=== PATIENT | male | born 1960 | race Caucasian/White ===

== ENCOUNTER 2019-10-04 17:33 | Emergency (ER) | payer OTHER ==
[2019-10-04 18:12] LABS: #Eosinphils 0.5 thou/uL (0.0-0.7); #Lymphocytes 2.1 thou/uL (1.20-3.40); #Monocytes 0.8 thou/uL (0.11-0.59); %Basophils 0.4 % (0.0-1.0); %Lymphocytes 18.3 % (21.0-51.0); %Monocytes 6.6 % (0.0-10.0); %Neutrophils 70.7 % (42.0-75.0); Hemoglobin 14.6 g/dL (14.0-18.0); Mean Corpuscular HGB CONC 32.4 g/dL (32.0-36.0); Mean Corpuscular Volume 92.6 fL (78.0-98.0); Platelet Count 182 thou/uL (130-400); RBC Distribution Width 12.8 % (11.5-14.5); Red Blood Cell (RBC) Count 4.89 mill/uL (4.70-6.10); White Blood Cell (WBC) Count 11.3 thou/uL (4.8-10.8)
[2019-10-04] MEDS ORDERED: Aspirin 325 MG TAB ONE (18:17)
[2019-10-04 18:20] LABS: PTT 28.4 sec (22.9-36.1); Prothrombin Time 13.6 sec (12.0-14.7)
[2019-10-04] MEDS ORDERED: Aspirin Chewable 81 MG TAB ONE (18:20)
[2019-10-04 18:36] LABS: ALT (SGPT) 33 U/L (8-55); AST (SGOT) 22 U/L (5-34); Alkaline Phosphatase 97 U/L (40-110); Anion Gap 18 mmol/L (10-20); BUN (Urea Nitrogen) 25 mg/dL (8.4-25.7); Bilirubin, Total 1.2 mg/dL (0.2-1.2); Calc. Creatinine Clearance 0 mL/min (70-130); Calcium 9.8 mg/dL (7.8-10.44); Carbon Dioxide 22 mmol/L (23-31); Chloride 103 mmol/L (98-107); Estimated GFR-MDRD 46; Glucose 176 mg/dL (80-115); Lipase 66 U/L (8-78); Potassium 3.8 mmol/L (3.5-5.1); Sodium 139 mmol/L (136-145)
[2019-10-04 18:54] LABS: CKMB 2.1 ng/mL (0-6.6)
--- NOTE | 2019-10-04 20:02 | RAD ---
PORTABLE CHEST ONE VIEW: 10/04/19 at 6:40 p.m. HISTORY: Chest pain, shortness of breath, dizziness. COMPARISON: 07/26/18. Changes of median sternotomy are again seen. Left sided AICD remains in place. The heart size is norm al. The lungs are well expanded without lobar consolidation, pneumothoraces, or pleural effusions. Th ere are degenerative changes in the acromioclavicular joints. IMPRESSION: No acute process. POS: LIANH
[2019-10-04] MEDS ORDERED: Dextrose 5 %-0.45 % NaCl 1,000 ML IV SCH (22:00)
[2019-10-04] MEDS ORDERED: Nitroglycerin 2% Ointment 1 INCH/1 GM Packet TOP SCH (22:00)
[2019-10-04] MEDS ORDERED: Acetaminophen 500 MG TAB PO PRN (22:00)
[2019-10-04] MEDS ORDERED: Dextrose 50% Abboject 50 ML SYRINGE SLOW IVP PRN (22:06)
[2019-10-04] MEDS ORDERED: Dextrose 5% in Water 1,000 ML IV PRN (22:06)
[2019-10-04] MEDS ORDERED: HumaLOG 300 UNITS/3 ML VIAL SC PRN (22:06)
--- NOTE | 2019-10-04 23:03 | HP ---
PRIMARY CARE PHYSICIAN: Dr. Sheridan Bullock. CHIEF COMPLAINT: Chest pain. HISTORY OF PRESENT ILLNESS: The patient is a very pleasant 59-year-old male with past medical history significant for diabetes type 2, hyperlipidemia, stroke with residual right-sided deficit, and hypertension. He presents to the ER today for chest pain that occurred while at home. The patient visited his heart doctor earlier today, Dr. Cody and was feeling fine during that time. Once he got home, he walked out to his car to carry a watermelon inside and he thinks walking in the heat started the pain. He began to feel short of breath and had a midsternal chest pressure that did not radiate anywhere. He was diaphoretic and nauseous throughout the pain. He did make it inside to sit in his chair where he remained for an hour because he was too weak to get up and get his cell phone. The pain eventually resolved on its own and he was able to call EMS. The ER notes do state that upon EMS arrival, he was found to have a wide-complex tachycardia with a heart rate in the 160s. When paramedics transferred him to the [facility], the tachycardia and chest pain did resolve per their report. Today in the ER, lab work was completed including a CBC, basic metabolic panel, troponin, chest x-ray, and EKG. PAST MEDICAL HISTORY: Diabetes mellitus type 2, hyperlipidemia, stroke, hypertension. PAST SURGICAL HISTORY: Hernia repair, CABG x4 in 2017, AICD. ALLERGIES: NO KNOWN DRUG ALLERGIES. MEDICATIONS: To be reconciled once to the floor- patient unable to recall medications. SOCIAL HISTORY: The patient lives at home alone. He is disabled. He uses a cane to ambulate long distances. He is not a smoker or uses any illicit drugs. He does drink a glass of wine per week. FAMILY HISTORY: Positive for extensive cardiac disease, diabetes, and cancer. REVIEW OF SYSTEMS: The patient does claim orthopnea. All other review of systems is negative unless noted in the HPI. PHYSICAL EXAMINATION: VITAL SIGNS: Blood pressure 117/84, pulse 71, respiratory rate 20, O2 saturation 98% on room air. Pain level is zero. Temperature 98.6. GENERAL: The patient appears nontoxic, appears older than his stated age. HEENT: Head, atraumatic, normocephalic. Eyes, PERRLA. Extraocular muscles are intact. NECK: Supple. Trachea midline. No JVD. No lymphadenopathy. RESPIRATORY: Clear to auscultation bilaterally. No wheezes, no rhonchi, no rales. CARDIOVASCULAR: Heart rate, regular rate and rhythm. No rubs, no gallops, no murmurs. ABDOMEN: Nontender. Normal bowel sounds. No distention. LOWER EXTREMITIES: 1+ pedal edema to right foot. No cyanosis. No clubbing. NEURO: The patient oriented to person, place, and time. PSYCH: Normal affect. Normal behavior. LABORATORY DATA: Troponin 0.037, CK-MB 2.1. BNP 26.8. Sodium 139, potassium 3.8, BUN 25, creatinine 1.54, GFR 46, glucose 176. WBC 11.3, hemoglobin 14.6, hematocrit 45.3. EKG showed normal sinus rhythm with PACs, 78 beats per minute. Chest x- ray showed no acute cardiopulmonary process. IMPRESSION AND PLAN: 1. Chest pain, acute, stable. We will consult the patient's tan room supervisor in the morning. He was planning to have a cardiac stress test and echo next week scheduled with his tan room supervisor. We will go ahead and order an echo and defer to Cardiology regarding the possible stress test. Continue to trend troponins. We will interrogate his AICD. The patient claims that he feels it is not functioning properly because it "did nothing" during his event earlier today. 2. Diabetes. We will continue the patient on home medications and start sliding scale insulin for him, also monitor Accu-Cheks. 3. Hypertension. We will reconcile home medications. The patient's blood pressure is stable at this time. 4. JANETH. Gentle rehydration due to unknown heart function. 5. Gastrointestinal and deep venous thrombosis prophylaxis ordered. 6. The patient wishes to be a full code. 7. The patient refused to list the surrogate decision maker for himself. Job ID: [id number] [facility]
== END 2019-10-04 22:22 | disposition left against medical advice (07) ==
LOC: ERS 17:33
DX: I47.2 Ventricular tachycardia (principal); R55 Syncope and collapse; E11.9 Type 2 diabetes mellitus without complications; E78.5 Hyperlipidemia, unspecified; I10 Essential (primary) hypertension
CPT/HCPCS: 36415; 71045; 80053; 82553; 83690; 83880; 84484; 85025; 85610; 85730; 93005

== ENCOUNTER 2020-02-09 14:03 | Outpatient (CLI) | payer OTHER ==
[2020-02-09 16:30] LABS: Hemoglobin 13.7 g/dL (14.0-18.0); Mean Corpuscular HGB CONC 32.5 g/dL (32.0-36.0); Mean Corpuscular Hemoglobin 29.9 pg (27.0-31.0); Mean Corpuscular Volume 92.1 fL (78.0-98.0); Mean Platelet Volume 10.4 fL (7.4-10.4); Platelet Count 205 thou/uL (130-400); RBC Distribution Width 13.4 % (11.5-14.5); Red Blood Cell (RBC) Count 4.58 mill/uL (4.70-6.10); White Blood Cell (WBC) Count 11.6 thou/uL (4.8-10.8)
[2020-02-09 16:41] LABS: INR-International Normal Ratio 1.1; PTT 34.2 sec (22.9-36.1); Prothrombin Time 14.7 sec (12.0-14.7)
[2020-02-09 16:54] LABS: Bilirubin Negative (Negative); Blood, Urine Small (Negative); Glucose, Urine (Dipstick) 250 mg/dL (Negative); Ketone, Urine Trace mg/dL (Negative); Leukocyte Small (Negative); Nitrite Negative (Negative); Protein, Urine (Dipstick) 30 mg/dL (Neg-Trace); Urobilinogen 0.2 mg/dL (Less than 2); pH, Urine 5.5 (5.0-9.0)
[2020-02-09 16:56] LABS: Clarity Cloudy (Clear); Specific Gravity, Urine 1.028 (1.002-1.036)
[2020-02-09 17:09] LABS: Bacteria/HPF Rare-Few HPF (None Seen); Renal Epithelial 0-3 HPF (None Seen); Squamous Epithelial None Seen HPF (0-3); Transitional Epithelial 0-3 HPF (None Seen); WBC/HPF Greater Than 50 HPF (0-3)
[2020-02-09 17:46] LABS: Anion Gap 18 mmol/L (10-20); BUN (Urea Nitrogen) 21 mg/dL (8.4-25.7); Calc. Creatinine Clearance 0 mL/min (70-130); Carbon Dioxide 18 mmol/L (23-31); Chloride 107 mmol/L (98-107); Estimated GFR-MDRD 59; Glucose 224 mg/dL (80-115); Potassium 4.4 mmol/L (3.5-5.1); Sodium 139 mmol/L (136-145)
[2020-02-10 12:31] LABS: SARS-CoV-2 MS2 Positive; SARS-CoV-2 N Gene Negative; SARS-CoV-2 S Gene Negative; SARS-CoV-2 by NAA Not Detected (NotDetected); SARS-CoV-2 orf1ab Negative
--- NOTE | 2020-02-17 13:15 | EKG ---
Test Reason : Blood Pressure : / mmHG Vent. Rate : 070 BPM Atrial Rate : 070 BPM P-R Int : 144 ms QRS Dur : 090 ms QT Int : 464 ms P-R-T Axes : 064 038 096 degrees QTc Int : 501 ms Sinus rhythm with Premature supraventricular complexes Low voltage QRS Cannot rule out Anterior infarct , age undetermined T wave abnormality, consider lateral ischemia Prolonged QT Abnormal ECG No previous ECGs available Confirmed by DR. Soniya ALVARES ([id number]) on 02/17/2020 1:15:22 PM Referred By: DR TEMPLE Confirmed By:DR. Soniya ALVARES
== END 2020-02-09 14:04 | disposition home or self-care (01) ==
LOC: LABBT 14:03
PROVIDERS: ATTEND Urology
DX: Z01.818 Encounter for other preprocedural examination (principal); Z20.828 Contact with and (suspected) exposure to other viral communicable diseases; N40.0 Benign prostatic hyperplasia without lower urinary tract symptoms
CPT/HCPCS: 80048; 81001; 85027; 85610; 85730; 87077; 87086; 87186; 87635; 93005; 93010; U0003

== ENCOUNTER 2020-03-01 06:33 | Outpatient (CLI) | payer OTHER ==
[2020-03-01 15:08] LABS: Hemoglobin 14.6 g/dL (14.0-18.0); Mean Corpuscular HGB CONC 30.9 G/DL (32.0-36.0); Mean Corpuscular Hemoglobin 28.7 PG (27.0-33.0); Mean Corpuscular Volume 93.1 fl (80.0-100.0); Mean Platelet Volume 12.3 fl (7.4-10.4); Platelet Count 189 10x3/uL (130-400); RBC Distribution Width 14.1 % (11.5-14.5); Red Blood Cell (RBC) Count 5.08 10x6/uL (4.40-5.80)
[2020-03-01 15:12] LABS: Bilirubin Neg (Negative); Blood, Urine Negative (Negative); Clarity Clear (Clear); Glucose, Urine (Dipstick) 250 mg/dL (Negative); Ketone, Urine Negative (Negative); Leukocyte 100 (Negative); Nitrite Negative (Negative); Protein, Urine (Dipstick) 15 mg/dl (Neg-Trace); Specific Gravity, Urine 1.025 (1.002-1.036); Urobilinogen Normal mg/dL (Less than 2)
[2020-03-01 15:26] LABS: Anion Gap 17 mmol/L (10-20); BUN (Urea Nitrogen) 17 mg/dL (8.4-25.7); Calc. Creatinine Clearance 0 mL/min (70-130); Calcium 9.2 mg/dL (7.8-10.44); Carbon Dioxide 22 mmol/L (23-31); Chloride 105 mmol/L (98-107); Estimated GFR-MDRD 62; Glucose 191 mg/dL (80-115); PTT 29.4 sec (22.0-33.0); Potassium 4.3 mmol/L (3.5-5.1); Prothrombin Time 10.8 sec (9.5-12.1); Sodium 140 mmol/L (136-145)
[2020-03-01 15:45] LABS: Bacteria/HPF Rare-Few HPF (None Seen); RBC/HPF 0-3 HPF (0-3); Squamous Epithelial 0-3 HPF (0-3)
[2020-03-01 15:46] LABS: Calcium Oxalate Crystals 2+ HPF (None Seen)
[2020-03-02 15:01] LABS: SARS-CoV-2 MS2 Positive; SARS-CoV-2 N Gene Negative; SARS-CoV-2 S Gene Negative; SARS-CoV-2 by NAA Not Detected (NotDetected); SARS-CoV-2 orf1ab Negative
== END 2020-03-01 06:34 | disposition home or self-care (01) ==
LOC: LABBT 06:33
PROVIDERS: ATTEND Urology
DX: Z01.812 Encounter for preprocedural laboratory examination (principal); Z20.828 Contact with and (suspected) exposure to other viral communicable diseases; N40.0 Benign prostatic hyperplasia without lower urinary tract symptoms
CPT/HCPCS: 80048; 81001; 85027; 85610; 85730; 87086; 87635; U0003

== ENCOUNTER 2020-03-23 15:34 | Inpatient (IN) | payer OTHER ==
--- NOTE | 2020-03-23 16:34 | CT ---
CT BRAIN 03/23/20 PROVIDED CLINICAL HISTORY: Dizziness. COMPARISON: 09/07/16. FINDINGS: The ventricular system appears normal in size and morphology. There is no evidence for intracranial h emorrhage or mass effect. The extracranial soft tissues and osseous structures appear unremarkable. V ascular calcifications are seen. IMPRESSION: No evidence for intracranial hemorrhage or mass effect. POS: SUMEET
[2020-03-23] MEDS ORDERED: Magnesium 2 GM/50 ML BAG (IN WATER) ONE (16:57)
[2020-03-23 17:00] LABS: #Eosinphils 0.2 thou/uL (0.0-0.7); #Lymphocytes 2.4 thou/uL (1.20-3.40); #Monocytes 0.9 thou/uL (0.11-0.59); #Neutrophils 7.9 thou/uL (1.40-6.50); %Basophils 0.1 % (0.0-1.0); %Eosinophils 1.6 % (0.0-10.0); %Monocytes 7.8 % (0.0-10.0); %Neutrophils 69.5 % (42.0-75.0); Hemoglobin 13.8 g/dL (14.0-18.0); Mean Corpuscular Hemoglobin 29.2 pg (27.0-31.0); Mean Corpuscular Volume 91.4 fL (78.0-98.0); Mean Platelet Volume 10.1 fL (7.4-10.4); Platelet Count 192 thou/uL (130-400); RBC Distribution Width 13.9 % (11.5-14.5); Red Blood Cell (RBC) Count 4.73 mill/uL (4.70-6.10); White Blood Cell (WBC) Count 11.3 thou/uL (4.8-10.8)
[2020-03-23 17:06] LABS: INR-International Normal Ratio 1.2; Prothrombin Time 15.3 sec (12.0-14.7)
--- NOTE | 2020-03-23 17:08 | RAD ---
PORTABLE CHEST: 03/23/20 PROVIDED CLINICAL HISTORY: Dizziness, headache, hypertension. FINDINGS: Comparison 03/15/20. Cardiac silhouette appears enlarged, which may be at least partially on the basis of portable techniq ue. Median sternotomy changes and left subclavian cardiac pacing device are redemonstrated. No focal consolidation, pleural fluid or pneumothorax apparent. IMPRESSION: No evidence for an acute cardiopulmonary process. POS: SUMEET
[2020-03-23 17:18] LABS: ALT (SGPT) 17 U/L (8-55); AST (SGOT) 11 U/L (5-34); Albumin 3.8 g/dL (3.4-4.8); Alkaline Phosphatase 94 U/L (40-110); Anion Gap 17 mmol/L (10-20); BUN (Urea Nitrogen) 16 mg/dL (8.4-25.7); Bilirubin, Total 1.4 mg/dL (0.2-1.2); Calc. Creatinine Clearance 0 mL/min (70-130); Calcium 9.2 mg/dL (7.8-10.44); Carbon Dioxide 26 mmol/L (23-31); Chloride 103 mmol/L (98-107); Estimated GFR-MDRD 55; Globulin 2.5 g/dL (2.4-3.5); Glucose 122 mg/dL (80-115); Potassium 4.2 mmol/L (3.5-5.1); Protein, Total 6.3 g/dL (5.8-8.1); Sodium 142 mmol/L (136-145)
[2020-03-23] MEDS ORDERED: Acetaminophen 500 MG TAB ONE (17:20)
--- NOTE | 2020-03-23 18:19 | PDOC.HHP ---
Hospitalist HPI - History of Present Illness Elevated blood pressure reading History of Present Illness: PCP: Dr. Bullock The patient is a 59-year-old male with a past medical history significant for CAD, CABG x4 (2017), AICD (2017), CVA with right-sided paresthesias (2011) that presents to the emergency department via EMS for the above complaint. The patient was recently discharged from our hospital on 03/16/2020. Apparently, his defibrillator had fired multiple times. He was discharged home on oral amiodarone and was to follow-up with his dog trainer, Dr. Cody, on 03/28/2020. He reports that since his discharge he has had intermittent, generalized headache, described as "like my head is going to explode", with associated elevated blood pressure, dizziness, blurred vision and unstable gait and heart palpitations. He reports that his blood pressure has been elevated for the past week, the highest reading was 185/118. His primary concern is that he could have a stroke. Reports that he has a history of migraine headaches, however, has not had one in several years. He has no history of DVT/PE. Denies any recent trauma or falls. Denies any fever, jaw claudication or neck stiffness. Denies any weakness to his extremities, dysphagia or slurred speech. Denies chest pain, however, he does have chronic swelling to his lower extremities that "my doctors have not been able to figure out". Denies any abdominal pain, nausea, vomiting, diarrhea. He does report some constipation, however, it last 2 to 3 days and then he has a formed BM. He reports dysuria, denies any hematuria. He is scheduled to have prostate surgery next month for his BPH. He called EMS and upon arrival, the patient was noted to have a blood pressure reading of 180/96, heart rate 55 with normal respirations and SPO2 saturation. The patient was taken to the hospital for further evaluation. ED Course: VITAL SIGNS ThuMar 23, 2020 15:36 ALEX Owens Kimberly BP: 113/96, Pulse: 57, Resp: 20, Temp: 98.8 (Oral), Pain: 4, O2 sat: 98 on (Room Air), Time: 03/23/2020 15:36. VITAL SIGNS ThuMar 23, 2020 15:56 ALEX Owens Kimberly Pulse: 47, Resp: 15, Pain: 4, Time: 03/23/2020 15:56. VITAL SIGNS ThuMar 23, 2020 16:15 ALEX Owens Kimberly BP: 167/79, Time: 03/23/2020 16:15. VITAL SIGNS ThuMar 23, 2020 16:56 ALEX Brooks Jeffery BP: 184/113, MAP: 136, Pulse: 66, Resp: 28, O2 sat: 97 on (Room Air), Time: 03/23/2020 16:56. VITAL SIGNS ThuMar 23, 2020 17:40 ALEX Owens Kimberly BP: 166/92, Pulse: 47, Resp: 23, Pain: 4, O2 sat: 97 on (Room Air), Time: 03/23/2020 17:40. Medication administration: magnesium sulfate in water 2 g IV Piggy Back Given 17:11 03/23/2020 Hospitalist ROS - Review of Systems All other systems reviewed; all pertinent +/- noted in HPI/Subj - Medication Medications: Medication Instructions Recorded Confirmed Type Apixaban [Eliquis] 5 mg PO BID 02/13/20 03/15/20 History Aspirin [Ecotrin Low Strength] 81 mg PO DAILY 02/13/20 03/15/20 History Atorvastatin Calcium 1 tab PO HS 02/13/20 03/15/20 History Carvedilol 1 tab PO BID 02/13/20 03/15/20 History Clopidogrel Bisulfate [Plavix] 75 mg PO HS 02/13/20 03/15/20 History Furosemide 1 tab PO BID 02/13/20 03/15/20 History Isosorbide Mononitrate [Isosorbide 1 tab PO DAILY 02/13/20 03/15/20 History Mononitrate ER] Levofloxacin 500 mg PO HS 02/13/20 03/15/20 History Lisinopril 1 tab PO HS 02/13/20 03/15/20 History Oxybutynin [Ditropan] 1 tab PO BID 02/13/20 03/15/20 History metFORMIN [Glucophage] 1,000 mg PO QAM- 02/13/20 03/15/20 History Amiodarone [Cordarone] 400 mg PO BID #30 tab 03/16/20 Rx Allergies No Known Allergies Allergy (Verified 03/05/20 11:18) Hospitalist History - Past Medical History Source: patient, RN notes reviewed Cardiac: reports: CAD, HTN, Hyperlipidemia, Other (Arrhythmia) 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 Endocrine: reports: Diabetes (Type II, [id number]) - Past Surgical History Past Surgical History: reports: CABG (X4 (2017)), Hernia Repair, Other (AICD (2017)) - Family History Family History: reports: cardiac disorder, cerebrovascular accident - Social History Smoking Status: Never smoker Alcohol: reports: None Drugs: reports: none Living Situation: Alone Activity level: independent ambulation - Exam General Appearance: NAD, awake alert. negative: ill appearing Eye: PERRL, anicteric sclera ENT: normocephalic atraumatic Neck: supple, symmetric, no JVD Heart: RRR, no murmur, no gallops, no rubs, normal peripheral pulses Respiratory: CTAB, no wheezes, no rales, no ronchi, normal chest expansion, no tachypnea Gastrointestinal: soft, non-tender, non-distended, normal bowel sounds, no bruit, no guarding, no rigidity Extremities: no cyanosis, 1+ LE edema Skin: no rashes Neurological: cranial nerve grossly intact, no new deficit (Right lower extremity drift, baseline from previous stroke). negative: speech deficit, vision deficit Psychiatric: normal affect, A&O x 3 Hospitalist Results - Labs Result Diagrams: 03/23/20 16:47 03/23/20 16:47 Lab results: WBC 11.3 thou/uL (4.8-10.8) H 03/23/20 16:47 Hgb 13.8 g/dL (14.0-18.0) L 03/23/20 16:47 Hct 43.2 % (42.0-52.0) 03/23/20 16:47 MCV 91.4 fL (78.0-98.0) 03/23/20 16:47 Plt Count 192 thou/uL (130-400) 03/23/20 16:47 Neutrophils % 69.5 % (42.0-75.0) 03/23/20 16:47 Sodium 142 mmol/L (136-145) 03/23/20 16:47 Potassium 4.2 mmol/L (3.5-5.1) 03/23/20 16:47 Chloride 103 mmol/L (98-107) 03/23/20 16:47 Carbon Dioxide 26 mmol/L (23-31) 03/23/20 16:47 BUN 16 mg/dL (8.4-25.7) 03/23/20 16:47 Creatinine 1.33 mg/dL (0.7-1.3) H 03/23/20 16:47 Glucose 122 mg/dL (80-115) H 03/23/20 16:47 Calcium 9.2 mg/dL (7.8-10.44) 03/23/20 16:47 Total Bilirubin 1.4 mg/dL (0.2-1.2) H 03/23/20 16:47 AST 11 U/L (5-34) 03/23/20 16:47 ALT 17 U/L (8-55) 03/23/20 16:47 Alkaline Phosphatase 94 U/L (40-110) 03/23/20 16:47 Troponin I 0.011 ng/mL (< 0.028) 03/23/20 16:47 Serum Total Protein 6.3 g/dL (5.8-8.1) 03/23/20 16:47 Albumin 3.8 g/dL (3.4-4.8) 03/23/20 16:47 - EKG Interpretation EK lead EKG shows, sinus bradycardia, Rate (beats per minute): 50, with no ectopics, Conduction normal, ST segments normal, T waves normal, [place], left, Clinical impression:, other dysrhythmia sinus bradycardia, QT 579, no stemi. - Radiology Interpretation Chest x-ray Status: report reviewed by me Additional Comment: IMPRESSION: No evidence for an acute cardiopulmonary process. CT scan - head Status: report reviewed by me Additional Comment: IMPRESSION: No evidence for intracranial hemorrhage or mass effect. Hospitalist H&P A/P - Problem (1) Dizziness Code(s): R42 - DIZZINESS AND GIDDINESS Status: Acute (2) Bradycardia Code(s): R00.1 - BRADYCARDIA, UNSPECIFIED Status: Acute (3) HTN (hypertension) Code(s): I10 - ESSENTIAL (PRIMARY) HYPERTENSION Status: Chronic (4) CAD (coronary artery disease) Code(s): I25.10 - ATHSCL HEART DISEASE OF [place] CORONARY ARTERY W/O ANG PCTRS Status: Chronic (5) HLD (hyperlipidemia) Code(s): E78.5 - HYPERLIPIDEMIA, UNSPECIFIED Status: Chronic (6) DM2 (diabetes mellitus, type 2) Status: Chronic (7) CVA (cerebral vascular accident) Code(s): I63.9 - CEREBRAL INFARCTION, UNSPECIFIED Status: Chronic (8) BPH (benign prostatic hyperplasia) Code(s): N40.0 - BENIGN PROSTATIC HYPERPLASIA WITHOUT LOWER URINRY TRACT SYMP Status: Chronic - Plan Plan: 59/M with PMH CAD w/ AICD, and CVA presents for dizziness. Admit to stroke unit, observation status. Expected length of stay less than 2 midnights. Presented hypertensive, bradycardic, NL RR, SPO2, afebrile. EKG sinus bradycardia, prolonged QT, no ST elevations CXR no acute process CT brain no acute process Troponin 0.011, BNP 135 [employer] interrogated AICD, 4 beats nonsustained V. tach on 03/17. No other abnormalities recorded. #Dizziness Patient reports H/A, ataxia for the past week. Was started on oral amiodarone, which can cause symptoms. EKG prolong QT interval in ED. We will hold amiodarone for now. Consult cardiology. Rule out posterior CVA. Order MRI, CD US. Recent echo 03/15/2020. Consult stroke team, and neurology. Patient anticoagulated on Eliquis, ASA, Plavix. Continue home dose atorvastatin. AICD interrogated by [employer] in ED. #Bradycardia During assessment in ED, HR 30s to 50s. Patient asymptomatic. We will hold Coreg and amiodarone for now. We will start Procardia XL for BP control. We will consult cardiology. Continue cardiac monitoring. Trend troponins, check TSH and mag level. Recent echo 03/15/20. #HTN Presented hypertensive. Due to bradycardia we will hold home dose of Coreg. We will start Procardia XL for BP control. We will restart home dose lisinopril, Lasix and Imdur. #CAD Continue home dose ASA, Plavix, Eliquis. Continue home dose Lasix, Imdur, lisinopril. Hold home dose BB due to bradycardia. #HLD Restart home dose atorvastatin Check FLP. #DM2 Hold home dose Metformin. Mild ISS. AC/at bedtime checks. #CVA Baseline right-sided paresthesias. Continue home dose ASA, Plavix, Eliquis. #BPH Reports scheduled for prostatectomy next month. Postponed secondary to recent hospitalization for cardiac issues. Reports dysuria. We will check UA. No SCDs for DVT prophylaxis. No pharmacological DVT prophylaxis. Full code. Discussed the case with Dr. David Cruz.
[2020-03-23] MEDS ORDERED: HumaLOG 300 UNITS/3 ML VIAL SC PRN (19:34)
[2020-03-23] MEDS ORDERED: Dextrose 5% in Water 1,000 ML IV PRN (19:34)
[2020-03-23] MEDS ORDERED: Dextrose 50% Abboject 50 ML SYRINGE SLOW IVP PRN (19:34)
[2020-03-23] MEDS ORDERED: hydrALAZINE 20 MG/ML VIAL SLOW IVP PRN (19:35)
[2020-03-23] MEDS ORDERED: NIFEdipine XL 30 MG TAB PO SCH (19:45)
[2020-03-23 20:41] LABS: Troponin I Less than 0.010 ng/mL (< 0.028)
[2020-03-23] MEDS ORDERED: Acetaminophen 500 MG TAB PO PRN (20:56)
[2020-03-23] MEDS ORDERED: Lisinopril 10 MG TAB PO SCH (21:00)
[2020-03-23] MEDS: Apixaban 5 MG TAB PO SCH (22:30)
[2020-03-23] MEDS: Oxybutynin 5 MG TAB PO SCH (22:30)
[2020-03-23] MEDS: Atorvastatin Calcium 40 MG TAB PO SCH (22:30)
[2020-03-23] MEDS: Clopidogrel Bisulfate 75 MG TAB PO SCH (22:30)
[2020-03-24 00:23] LABS: Troponin I 0.028 ng/mL (< 0.028)
[2020-03-24 03:11] LABS: SARS-CoV-2 MS2 Positive; SARS-CoV-2 N Gene Negative; SARS-CoV-2 S Gene Negative; SARS-CoV-2 by NAA Not Detected (NotDetected); SARS-CoV-2 orf1ab Negative
[2020-03-24 05:38] LABS: Cardiac Risk 4.2 (Less than 4.5)
[2020-03-24] MEDS: Furosemide 40 MG TAB PO SCH ×2 (06:22→14:22)
[2020-03-24 07:05] LABS: Bacteria/HPF None Seen HPF (None Seen); Bilirubin Negative (Negative); Blood, Urine Negative (Negative); Clarity Clear (Clear); Glucose, Urine (Dipstick) 100 mg/dL (Negative); Ketone, Urine Negative (Negative); Leukocyte 250 Leu/uL (Negative); Nitrite Negative (Negative); Protein, Urine (Dipstick) Negative (Neg-Trace); RBC/HPF 0-3 HPF (0-3); Specific Gravity, Urine 1.019 (1.002-1.036); Squamous Epithelial 0-3 HPF (0-3); Urobilinogen Normal mg/dL (Less than 2)
[2020-03-24] MEDS ORDERED: Ibuprofen 200 MG TAB PO SCH (07:45)
[2020-03-24] MEDS: Aspirin 81 mg Enteric Coated Tablet PO SCH (08:28)
[2020-03-24] MEDS: Oxybutynin 5 MG TAB PO SCH ×2 (08:28→20:16)
[2020-03-24] MEDS: Apixaban 5 MG TAB PO SCH ×2 (08:28→20:16)
--- NOTE | 2020-03-24 09:12 | ULT ---
Carotid arterial Doppler ultrasound: 03/24/2020 COMPARISON: None. HISTORY: Dizziness with headache and hypertension, vertigo. TECHNIQUE: Multiplanar grayscale sonographic imaging of the arterial structures of the neck obtained with Doppler interrogation including color flow and spectral analysis. FINDINGS: Antegrade blood flow with normal arterial waveforms are seen within the carotid and vertebral system bilaterally. There is atherosclerotic calcification within the distal left common carotid artery. VESSEL PSV (cm/sec) Right common carotid artery 83 Right internal carotid artery 50 Right external carotid artery 84 Left common carotid artery 83 Left internal carotid artery 59 Left external carotid artery 67 The ICA/CCA ratio is 0.6 on the right and 0.7 on the left. IMPRESSION: No hemodynamically significant stenosis on the basis of sonographic velocity criteria. Transcribed Date/Time: 03/24/2020 9:37 AM
[2020-03-24] MEDS ORDERED: Lisinopril 20 MG TAB PO SCH (10:30)
--- NOTE | 2020-03-24 12:38 | CT ---
CT BRAIN WITHOUT CONTRAST: Date: 03/24/2020 HISTORY: Episode of blurred vision. COMPARISON: 03/23/2020. FINDINGS: Changes of chronic small vessel ischemic disease are again seen. The ventricular size is stable and t he basilar cisterns are patent. No evidence of acute infarct, hemorrhage, midline shift, or abnormal extra-axial fluid collections are seen. The bony calvarium is intact. The visualized paranasal sinuse s and mastoid air cells are well aerated. IMPRESSION: No CT evidence of acute intracranial process. POS: BISIA
--- NOTE | 2020-03-24 12:41 | CT ---
CT of the neck without contrast: 03/24/2020 COMPARISON: None HISTORY: Evaluate mass TECHNIQUE: Axial CT imaging at 2.5 mm intervals through the neck without contrast. Coronal and sagitt al reformatted imaging obtained. FINDINGS: The lack of contrast media limits assessment of the mucosal structures of the neck, the vas cular structures, and for lymphadenopathy. The imaged lung apices demonstrate no acute findings. Partially imaged transvenous pacing device pres ent. Midline sternotomy wires are noted. Partially imaged paranasal sinuses and mastoid air cells are well-aerated. The retroantral fat and pa rapharyngeal fat, the parotid glands, and the submandibular glands, and the tonsillar pillars are grossly unremarkable. The thyroid gland is heterogeneous with a rim calcified inferior right thyroid nodule noted measuring approximately 1.6 cm. There is a circumscribed posterior right paracentral lesion abutting the spinous process at the C6 an d C7 vertebral bodies suggesting a posterior lipoma measuring 6.3 x 4.9 x 5.3 cm. Review of the osseous structures demonstrates multifocal degenerative change within the cervical spin e with multilevel cervical spine disc space narrowing and posterior osteophyte formation as well as multilevel facet and uncovertebral osteophyte formation, most prominent on the right at the C5-6 leve l. 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 Incidental findings as detailed above.
--- NOTE | 2020-03-24 14:07 | CON ---
DATE OF CONSULTATION: 03/24/2020 INDICATION FOR CONSULTATION: A 59-year-old gentleman with known coronary artery disease, status post bypass surgery with a history of AICD implant. HISTORY OF PRESENT ILLNESS: This is a very pleasant but unfortunate 59-year-old gentleman, underwent bypass surgery with 4-vessel bypass apparently in 2017 at [facility]. He has been followed by Dr. Cody in the past. He also had suffered a CVA prior to his bypass surgery or perhaps at the time of the bypass surgery, it is unclear, at least he had a myocardial infarction at that time. His records are somewhat limited here as most of the evaluation was performed at [facility].He felt lightheaded in the past when he actually received defibrillator, which was performed sometime later in [place], but apparently on the 15 of March of this year, he was talking to someone where he lives, became very lightheaded again, sat down, and received 2 shocks and defibrillator, then presented to [facility]. I believe, he had received another shock in the interim and then he received 3 shocks from AICD at that time. He was watched overnight, was placed on amiodarone, and the next day, he was discharged home on p.o. amiodarone and his other medications. He is very concerned that he might have another shock and yesterday, he felt like he has become very lightheaded again, similar of what he had had in the past, and he presented to the emergency room again. Interrogation of device does not show any indication that he has had a subsequent or a repeat shock since the from the AICD. He denied any chest pain. He had no significant shortness of breath, but has noticed a rapid heart rate recently. He also noticed that yesterday when he was feeling somewhat lightheaded. He did have some nonsustained ventricular tachycardia or tachycardia noted on the device evaluation, but no sustained episodes and no episodes of shocks from the device. He has had no other significant problem. He did complain of some blurred vision. He says that his chest feels hot before the episodes, but he does not feel any chest pain per se. He says that he was last seen in the office by Dr. Cody just a couple of months ago. It appears on review of the records that he last was seen in the office in September by Dr. Cody. His bypass according to the records was in 2017. The defibrillator was placed in 2018. He did have an echocardiogram also in September of this year, which showed ejection fraction to be about 50% to 55%. He has mild mitral valve regurgitation, mild tricuspid valve regurgitation. He did have some evidence of left ventricular wall thickness about 1.5 cm with some asymmetric septal hypertrophy and the apex appeared to be hypokinetic, but overall ejection fraction was 50% to 55% which is within the normal range. He also had grade 1 diastolic dysfunction. He also had a stress test performed, which showed ejection fraction about 41% by nuclear evaluation with an apical scar. No evidence of reversible ischemia. At this time, he appears to be very anxious and nervous about having another possible CVA which he has suffered in the past. He presented to the emergency room. It appears that he is otherwise relatively stable, but does have significant hypertension and also was noted in the emergency room to have a heart rate in the 50s, which has also been pretty much maintained with a heart rate in the 50s, but he does have a defibrillator, the lower level is set at 50. so it appears that he is actually just sensing with the device and only occasionally pacing. Also, I did note on the evaluation that he was not pacing very frequently from the device. He has noticed recently that his blood pressure has been elevated at home and he anywhere between 150 to 180 of systolically and 80 to 100s with diastolic. PAST MEDICAL HISTORY: Significant for the CVA, coronary artery disease, bypass surgery, history of type 2 diabetes, had a CVA, has a history of ischemic cardiomyopathy. His bypass surgery was in 2017. He had a defibrillator placed, which is a [employer] device in 2018. FAMILY HISTORY: His mother has Alzheimer's and diabetes and some type of heart issues. SOCIAL HISTORY: He does not smoke. There is no significant alcohol use. ALLERGIES: NONE. MEDICATIONS PRIOR TO ADMISSION: Included: 1. Eliquis 2.5 mg twice a day. 2. Plavix plus aspirin 75 and 81 mg a day. 3. Oxybutynin chloride 5 mg twice a day. 4. Coreg 12.5 mg twice a day. 5. Lisinopril 10 mg once a day. 6. Isosorbide mononitrate 30 mg tablets once a day. 7. Metformin 500 mg 2 tablets a day before meal. 8. Atorvastatin 40 mg a day. 9. Aldactone 25 mg a day. 10. Tamsulosin 0.4 mg once a day. 11. Lasix 40 mg b.i.d. 12. Doxycycline monohydrate as needed for 21 days if necessary. REVIEW OF SYSTEMS: He did complain of some blurred vision occasionally, which he did notice some blurred vision this morning when he awoke and felt somewhat lightheaded, maybe it has been relatively stable since being in the hospital. HEENT exam otherwise is unremarkable except what is noted in the history of present illness. PHYSICAL EXAMINATION: GENERAL: Reveals a well-developed, well-nourished gentleman. He is in no acute distress at this time. He is alert. He is oriented. He is able to converse easily. HEENT: Shows the head to be normocephalic and atraumatic. Carotid pulses are present. I did not hear any bruits. CHEST: Clear to auscultation without rales, rhonchi, or wheezing. CARDIOVASCULAR: At this time revealed a regular rate and rhythm. There were no gross murmurs noted. There were no heaves or thrills. There is a well-healed surgical incision underneath the left infraclavicular area after an AICD implant. ABDOMEN: Shows obesity with positive bowel sounds. No organomegaly or masses noted. Femoral pulses are present. EXTREMITIES: Show no clubbing, cyanosis, or edema. Pedal pulses are present. He has a well-healed midline surgical incision after median sternotomy. PSYCHOSOCIAL: Appears to be within normal limits. NEUROLOGIC: He does have some evidence of weakness after having a CVA on the right side. LABORATORY DATA: WBC is 11.3, hemoglobin is 13.8 with hematocrit 48.2, platelet count of 192,000. Blood sugar was 151, sodium was 142, BUN was 16, creatinine 1.33. Blood sugar 122. Cardiac enzymes are negative x3. EKG was unremarkable for any acute changes. He does have some bradycardia. He was noted on the telemetry that he did have some short runs of what appears to be nonsustained ventricular tachycardia or AIVR. IMPRESSION: Unfortunate middle-aged gentleman with a history of cardiomyopathy. He will undergo a repeat echocardiogram for evaluation of left ventricular systolic function. He may need to undergo stress testing to rule out evidence of ischemia as a possible etiology of the automatic implantable cardioverter-defibrillator shock that he recently experienced about a week ago on the 15 of March unless there was a stress test performed at [facility], but he is unaware that this was performed. He did have a negative stress test actually in September in the office that showed no evidence of ischemia. At this time, maybe best to control his blood pressure and symptoms to see whether or not he improves since there has been no significant indication that he has had no further shocks from AICD. We will need to control his rhythms . He has had some episodes of AIVR, will continue the amiodarone, may need to increase the dose. He was just recently started on this medication. We will need to adjust and determine whether or not he needs to have more of the amiodarone. We will also look his medications to see whether or not we can maximize medicines further; however, he is already on beta blockers, AYE inhibitors, Aldactone, and diuretics, but he has only taken his Coreg, it was only 12.5 mg b.i.d. at home, which needed to be increased to 25 mg b.i.d. Further recommendations will depend on the results of his hospital followup with his medical management if blood pressure can be controlled. Job ID: [id number] ZAYDA
[2020-03-24] MEDS: Amiodarone 200 MG TAB PO SCH ×2 (14:22→20:15)
[2020-03-24] MEDS: Carvedilol 6.25 MG TAB PO SCH (16:35)
--- NOTE | 2020-03-24 17:19 | PDOC.HOSPP ---
- Subjective Encounter Date: 03/24/20 Encounter Time: 10:30 Subjective: pt up in bed no complains - Objective Vital Signs & Weight: Vital Signs (12 hours) Temp Pulse Pulse Pulse Resp BP BP 03/24/20 16:35 135/93 H 03/24/20 15:20 97.4 F L 63 14 03/24/20 14:22 59 L 60 155/98 H 03/24/20 12:50 97.5 F L 60 22 H 03/24/20 09:22 60 61 141/105 H 03/24/20 08:00 03/24/20 07:04 98.2 F 60 26 H BP BP BP BP BP Pulse Ox 03/24/20 16:35 03/24/20 15:20 118/78 93 L 03/24/20 14:22 146/105 H 03/24/20 12:50 118/81 96 03/24/20 09:22 139/88 03/24/20 08:00 160/101 H 150/89 H 139/84 03/24/20 07:04 158/86 H 95 Weight Weight 261 lb I&O: 03/23/20 03/24/20 03/25/20 06:59 06:59 06:59 Intake Total 300 Output Total 800 100 Balance -800 200 Result Diagrams: 03/23/20 16:47 03/23/20 16:47 Additional Labs: Accuchecks 03/24/20 03/24/20 11:13 04:58 POC Glucose 151 H 204 H Hospitalist ROS - Review of Systems Respiratory: denies: cough, dry, shortness of breath, hemoptysis, SOB with excer tion, pleuritic pain, sputum, wheezing, other Cardiovascular: denies: chest pain, palpitations, orthopnea, paroxysmal noc. dyspnea, edema, light headedness, other Gastrointestinal: denies: nausea, vomiting, abdominal pain, diarrhea, constipation, melena, hematochezia, other - Medication Medications: Active Medications Generic Name Dose Route Start Last Admin Trade Name Freq PRN Reason Stop Dose Admin Amiodarone HCl 200 mg 03/24/20 15:00 03/24/20 14:22 Amiodarone 200 Mg Tab PO 200 mg TID YOLIS Administration Apixaban 5 mg 03/23/20 21:00 03/24/20 08:28 Apixaban 5 Mg Tab PO 5 mg BID YOLIS Administration Aspirin 81 mg 03/24/20 09:00 03/24/20 08:28 Aspirin 81 Mg Enteric Coated Tablet PO 81 mg DAILY YOLIS Administration Atorvastatin Calcium 40 mg 03/23/20 21:00 03/23/20 22:30 Atorvastatin Calcium 40 Mg Tab PO 40 mg HS YOLIS Administration Carvedilol 12.5 mg 03/24/20 17:00 03/24/20 16:35 Carvedilol 6.25 Mg Tab PO 12.5 mg BID-WM YOLIS Administration Clopidogrel Bisulfate 75 mg 03/23/20 21:00 03/23/20 22:30 Clopidogrel Bisulfate 75 Mg Tab PO 75 mg HS YOLIS Administration Furosemide 40 mg 03/24/20 06:00 03/24/20 14:22 Furosemide 40 Mg Tab PO 40 mg 0600,1400 YOLIS Administration Oxybutynin Chloride 5 mg 03/23/20 21:00 03/24/20 08:28 Oxybutynin 5 Mg Tab PO 5 mg BID YOLIS Administration - Exam Heart: negative: RRR, no murmur, no gallops, no rubs, normal peripheral pulses, irregular, diminshed peripheral pulses, murmur present, II/IV, III/IV Respiratory: negative: CTAB, no wheezes, no rales, no ronchi, normal chest expansion, no tachypnea, normal percussion, rales, rhonchi, tachypneic, wheezes Gastrointestinal: negative: soft, non-tender, non-distended, normal bowel sounds, no palpable masses, no hepatomegaly, no splenomegaly, no bruit, no guarding, no rigidity, tender to palpation, distended, diminished bowl sounds, voluntary guarding Extremities: 1+ LE edema Hosp A/P (1) Bradycardia Code(s): R00.1 - BRADYCARDIA, UNSPECIFIED Status: Acute (2) CAD (coronary artery disease) Code(s): I25.10 - ATHSCL HEART DISEASE OF [place] CORONARY ARTERY W/O ANG PCTRS Status: Chronic (3) CVA (cerebral vascular accident) Code(s): I63.9 - CEREBRAL INFARCTION, UNSPECIFIED Status: Chronic (4) DM2 (diabetes mellitus, type 2) Status: Chronic (5) HLD (hyperlipidemia) Code(s): E78.5 - HYPERLIPIDEMIA, UNSPECIFIED Status: Chronic (6) HTN (hypertension) Code(s): I10 - ESSENTIAL (PRIMARY) HYPERTENSION Status: Chronic (7) Obesity (BMI 30-39.9) Code(s): E66.9 - OBESITY, UNSPECIFIED Status: Chronic - Plan Patient up in bed no complaints currently. He states that last night his blood pressure was really high and he was afraid that he might have a stroke. He was noted to be significantly bradycardic in the ER. Had prolonged QTC. We will repeat an EKG. Cardiology consulted. Patient most likely will require EP study. His AICD interrogation indicated few beats of V. tach on March 17. Electrolytes are stable. Patient currently on Eliquis. He did complain of some blurry vision this morning however this has improved. He is on Eliquis. We will get an MRI brain.
[2020-03-24] MEDS: HumaLOG 300 UNITS/3 ML VIAL SC PRN (17:58)
[2020-03-24] MEDS: Atorvastatin Calcium 40 MG TAB PO SCH (20:15)
[2020-03-24] MEDS: Clopidogrel Bisulfate 75 MG TAB PO SCH (20:15)
--- NOTE | 2020-03-24 22:02 | CON ---
NEUROLOGY CONSULTATION DATE OF CONSULTATION: 03/24/2020 REASON FOR CONSULTATION: Dizziness/hypertensive emergency. HISTORY OF PRESENT ILLNESS: Mr. North is a 59-year-old male with medical history significant for coronary artery disease, CABG x4 in 2017, AICD placement in 2017, CVA with right-sided paresthesias since 2011, presented to the emergency room with dizziness in the setting of hypertensive emergency. He was recently discharged from the hospital on 03/16/2020. Apparently, his defibrillator had fired multiple times and he was discharged on oral amiodarone and has to follow up with his casino gaming inspector, Dr. Cody on 03/28/2020 per patient. Since his discharge, he has intermittent generalized headaches as if his head is going to explode followed by associated with dizziness, blurred vision, and elevated blood pressure with gait instability and heart palpitations. Per patient, his blood pressure has been elevated since the last week and his highest read was 185/118. His primary concern was he has a stroke. The patient denies any worsening of the focal deficits from the prior stroke, nausea, vomiting, problems with swallowing or speech or focal weakness or worsening of right-sided paresthesias. He also denies history of dysuria, hematuria, recent illness, cough, fever, neck stiffness, recent exposure to COVID-19. He was admitted to the hospital for further evaluation. In the emergency room, his blood pressure was 136/96 and pulse 57. He was given magnesium sulfate and admitted for further evaluation. REVIEW OF SYSTEMS: All systems reviewed and were negative except the pertinent positives and negatives mentioned in the HPI. ALLERGIES: NO KNOWN DRUG ALLERGIES. PAST MEDICAL HISTORY: Coronary artery disease, hypertension, hyperlipidemia, arrhythmias, residual right-sided paresthesias because of prior stroke in 2017, benign prostatic hyperplasia, diabetes mellitus type 2. PAST SURGICAL HISTORY: CABG x4 in 2017, hernia repair, AICD placement in 2017. FAMILY HISTORY: The patient denies coronary artery disease or cerebrovascular accident. SOCIAL HISTORY: The patient lives alone. He denies smoking, alcohol, illegal drug use. His activity level is independent ambulation. Medications: Medication Instructions Recorded Confirmed Type Apixaban [Eliquis] 5 mg PO BID 02/13/20 03/15/20 History Aspirin [Ecotrin Low Strength] 81 mg PO DAILY 02/13/20 03/15/20 History Atorvastatin Calcium 1 tab PO HS 02/13/20 03/15/20 History Carvedilol 1 tab PO BID 02/13/20 03/15/20 History Clopidogrel Bisulfate [Plavix] 75 mg PO HS 02/13/20 03/15/20 History Furosemide 1 tab PO BID 02/13/20 03/15/20 History Isosorbide Mononitrate [Isosorbide 1 tab PO DAILY 02/13/20 03/15/20 History Mononitrate ER] Levofloxacin 500 mg PO HS 02/13/20 03/15/20 History Lisinopril 1 tab PO HS 02/13/20 03/15/20 History Oxybutynin [Ditropan] 1 tab PO BID 02/13/20 03/15/20 History metFORMIN [Glucophage] 1,000 mg PO QAM- 02/13/20 03/15/20 History Amiodarone [Cordarone] 400 mg PO BID #30 tab 03/16/20 Rx Vital Signs & Weight: Vital Signs (12 hours) Temp Pulse Pulse Pulse Resp BP BP 03/24/20 16:35 135/93 H 03/24/20 15:20 97.4 F L 63 14 03/24/20 14:22 59 L 60 155/98 H 03/24/20 12:50 97.5 F L 60 22 H 03/24/20 09:22 60 61 141/105 H 03/24/20 08:00 03/24/20 07:04 98.2 F 60 26 H BP BP BP BP BP Pulse Ox 03/24/20 16:35 03/24/20 15:20 118/78 93 L 03/24/20 14:22 146/105 H 03/24/20 12:50 118/81 96 03/24/20 09:22 139/88 03/24/20 08:00 160/101 H 150/89 H 139/84 03/24/20 07:04 158/86 H 95 Weight Weight 261 lb I&O: 03/23/20 03/24/20 03/25/20 06:59 06:59 06:59 Intake Total 300 Output Total 800 100 Balance -800 200 PHYSICAL EXAMINATION: General Appearance: NAD, awake alert. Eye: PERRL, anicteric sclera ENT: normocephalic atraumatic Neck: supple, symmetric, no JVD Heart: RRR, no murmur, no gallops, no rubs, normal peripheral pulses Respiratory: CTAB, no wheezes, no rales, no ronchi, normal chest expansion, no tachypnea Gastrointestinal: soft, non-tender, non-distended, normal bowel sounds, no bruit, no guarding, no rigidity Extremities: no cyanosis, 1+ LE edema Skin: no rashes Neurological: Mental status; the patient is alert and oriented to person, place, and time. Recent and remote memory intact. Speech is clear. Cranial nerves 2 through 12 intact. Motor; muscle tone and bulk are normal. Strength 5/5 bilaterally. No new deficit. Right lower extremity drift which is baseline from the previous stroke. Cerebellar, finger-nose testing intact. Gait deferred due to the patient's safety reasons. Sensory, mild decrease in light touch on the right. DATA REVIEWED: WBC 11.3 thou/uL (4.8-10.8) H 03/23/20 16:47 Hgb 13.8 g/dL (14.0-18.0) L 03/23/20 16:47 Hct 43.2 % (42.0-52.0) 03/23/20 16:47 MCV 91.4 fL (78.0-98.0) 03/23/20 16:47 Plt Count 192 thou/uL (130-400) 03/23/20 16:47 Neutrophils % 69.5 % (42.0-75.0) 03/23/20 16:47 Sodium 142 mmol/L (136-145) 03/23/20 16:47 Potassium 4.2 mmol/L (3.5-5.1) 03/23/20 16:47 Chloride 103 mmol/L (98-107) 03/23/20 16:47 Carbon Dioxide 26 mmol/L (23-31) 03/23/20 16:47 BUN 16 mg/dL (8.4-25.7) 03/23/20 16:47 Creatinine 1.33 mg/dL (0.7-1.3) H 03/23/20 16:47 Glucose 122 mg/dL (80-115) H 03/23/20 16:47 Calcium 9.2 mg/dL (7.8-10.44) 03/23/20 16:47 Total Bilirubin 1.4 mg/dL (0.2-1.2) H 03/23/20 16:47 AST 11 U/L (5-34) 03/23/20 16:47 ALT 17 U/L (8-55) 03/23/20 16:47 Alkaline Phosphatase 94 U/L (40-110) 03/23/20 16:47 Troponin I 0.011 ng/mL (< 0.028) 03/23/20 16:47 Serum Total Protein 6.3 g/dL (5.8-8.1) 03/23/20 16:47 Albumin 3.8 g/dL (3.4-4.8) 03/23/20 16:47 - EKG Interpretation EK lead EKG shows, sinus bradycardia, Rate (beats per minute): 50, with no ectopics, Conduction normal, ST segments normal, T waves normal, [place], left, Clinical impression:, other dysrhythmia sinus bradycardia, QT 579, no stemi. - Radiology Interpretation Chest x-ray Status: report reviewed by me Additional Comment: IMPRESSION: No evidence for an acute cardiopulmonary process. CT scan - head Status: report reviewed by me Additional Comment: IMPRESSION: No evidence for intracranial hemorrhage or mass effect. ASSESSMENT AND PLAN: (1) Dizziness Code(s): R42 - DIZZINESS AND GIDDINESS Status: Acute (2) Bradycardia Code(s): R00.1 - BRADYCARDIA, UNSPECIFIED Status: Acute (3) HTN (hypertension) Code(s): I10 - ESSENTIAL (PRIMARY) HYPERTENSION Status: Chronic (4) CAD (coronary artery disease) Code(s): I25.10 - ATHSCL HEART DISEASE OF [place] CORONARY ARTERY W/O ANG PCTRS Status: Chronic (5) HLD (hyperlipidemia) Code(s): E78.5 - HYPERLIPIDEMIA, UNSPECIFIED Status: Chronic (6) DM2 (diabetes mellitus, type 2) Status: Chronic (7) CVA (cerebral vascular accident) Code(s): I63.9 - CEREBRAL INFARCTION, UNSPECIFIED Status: Chronic (8) BPH (benign prostatic hyperplasia) Code(s): N40.0 - BENIGN PROSTATIC HYPERPLASIA WITHOUT LOWER URINRY TRACT SYMP Status: Chronic Mr. Cody North is a 59-year-old male with extensive medical history of hypertension, coronary artery disease, hyperlipidemia, diabetes mellitus, and prior stroke in 2017, presented with an episode of dizziness and blurred vision in the setting of hypertensive emergency. Per patient, he has an episode of blurred vision this morning, which lasted for about 4 hours and resolved on its own. Per nursing staff, he did receive a dose of Motrin for headache. Consider stat head CT to rule out acute intracranial process. Permissive control of blood pressure at this time. Strict control of blood glucose. PT/OT/Speech. Continue Eliquis, aspirin, and Plavix for secondary stroke prevention. Continue atorvastatin for secondary stroke prevention. Consider AICD interrogation by [employer]. Consider MRI if the AICD device is compatible. He also needs carotid ultrasound and 2D ultrasound. The patient had a recent echo in feb 2020. Results reviewed. No need to repeat the study. Continue medical management per primary team and Cardiology. Continue home medications. DVT prophylaxis. PT/OT/Speech. The patient had a soft tissue mass in the neck, so consider CT of the neck. Plan discussed in detail with the patient and the nursing staff. We will continue to follow. Thank you for the consult. Job ID: [id number] ZAYDA
[2020-03-25] MEDS: HumaLOG 300 UNITS/3 ML VIAL SC PRN ×3 (05:33→17:19)
[2020-03-25] MEDS: Furosemide 40 MG TAB PO SCH ×2 (05:33→14:50)
[2020-03-25] MEDS: Aspirin 81 mg Enteric Coated Tablet PO SCH (08:18)
[2020-03-25] MEDS: Carvedilol 6.25 MG TAB PO SCH ×2 (08:19→17:18)
[2020-03-25] MEDS: Apixaban 5 MG TAB PO SCH ×2 (08:19→19:43)
[2020-03-25] MEDS: Oxybutynin 5 MG TAB PO SCH ×2 (08:19→19:44)
[2020-03-25] MEDS: Amiodarone 200 MG TAB PO SCH ×3 (08:20→19:44)
[2020-03-25] MEDS: Lisinopril 20 MG TAB PO SCH (08:21)
--- NOTE | 2020-03-25 13:50 | PDOC.NEUPN ---
- Subjective Encounter Date: 03/25/20 Subjective: Patient denies any new complaints in the last 24 hours. Episode of blurred vision yesterday. Follow-up head CT was negative for acute intracranial pathology. - Objective Vital Signs & Weight: Vital Signs (12 hours) Temp Pulse Resp BP BP Pulse Ox 03/25/20 12:00 98.2 F 54 L 16 114/81 96 03/25/20 08:08 97.8 F 52 L 17 115/80 95 03/25/20 03:51 97.5 F L 53 L 20 116/75 93 L Weight Weight 261 lb 4.8 oz I&O: 03/24/20 03/25/20 03/26/20 06:59 06:59 06:59 Intake Total 540 Output Total 800 760 Balance -800 -220 Result Diagrams: 03/23/20 16:47 03/23/20 16:47 Additional Labs: Accuchecks 03/25/20 03/25/20 03/24/20 09:51 05:12 20:39 POC Glucose 243 H 162 H 157 H 03/24/20 17:36 POC Glucose 174 H Radiology Reviewed by me: Yes EKG Reviewed by me: Yes ROS - Review of Systems Constitutional: denies: fever, chills, sweats, weakness, malaise, other Eyes: denies: pain, vision change, conjunctivae inflammation, eyelid inflammation, redness, other ENT: denies: ear pain, ear discharge, nose pain, nose discharge, nose congestion, mouth pain, mouth swelling, throat pain, throat swelling, other Respiratory: denies: cough, dry, shortness of breath, hemoptysis, SOB with excertion, pleuritic pain, sputum, wheezing, other Gastrointestinal: denies: nausea, vomiting, abdominal pain, diarrhea, consti pation, melena, hematochezia, other Genitourinary: denies: dysuria, frequency, incontinence, hematuria, retention, other Musculoskeletal: denies: neck pain, shoulder pain, arm pain, back pain, hand pain, leg pain, foot pain, other Neurological: denies: weakness, numbness, incoordination, change in speech, confusion, seizures, other All Systems: All other systems reviewed; all pertinent +/- noted in HPI/Subj - Medication Medications: Active Medications Generic Name Dose Route Start Last Admin Trade Name Freq PRN Reason Stop Dose Admin Acetaminophen 1,000 mg 03/23/20 20:56 03/24/20 20:15 Acetaminophen 500 Mg Tab PO 1,000 mg Q8H PRN Administration Headache/Fever/Mild Pain (1-3) Amiodarone HCl 200 mg 03/24/20 15:00 03/25/20 08:20 Amiodarone 200 Mg Tab PO 200 mg TID YOLIS Administration Apixaban 5 mg 03/23/20 21:00 03/25/20 08:19 Apixaban 5 Mg Tab PO 5 mg BID YOLIS Administration Aspirin 81 mg 03/24/20 09:00 03/25/20 08:18 Aspirin 81 Mg Enteric Coated Tablet PO 81 mg DAILY YOLIS Administration Atorvastatin Calcium 40 mg 03/23/20 21:00 03/24/20 20:15 Atorvastatin Calcium 40 Mg Tab PO 40 mg HS YOLIS Administration Carvedilol 12.5 mg 03/24/20 17:00 03/25/20 08:19 Carvedilol 6.25 Mg Tab PO 12.5 mg BID-WM YOLIS Administration Clopidogrel Bisulfate 75 mg 03/23/20 21:00 03/24/20 20:15 Clopidogrel Bisulfate 75 Mg Tab PO 75 mg HS YOLIS Administration Furosemide 40 mg 03/24/20 06:00 03/25/20 05:33 Furosemide 40 Mg Tab PO 40 mg 0600,1400 [facility] Administration Insulin Human Lispro 0 units 03/23/20 19:34 03/25/20 12:12 Humalog 300 Units/3 Ml Vial SC 3 unit .MILD SLIDING SCALE PRN Administration Mild Correctional Scale Isosorbide Mononitrate 30 mg 03/24/20 21:00 03/25/20 08:20 Isosorbide Mononitrate Er 30 Mg Tab PO 30 mg BID YOLIS Administration Lisinopril 20 mg 03/25/20 09:00 03/25/20 08:21 Lisinopril 20 Mg Tab PO 20 mg DAILY YOLIS Administration Oxybutynin Chloride 5 mg 03/23/20 21:00 03/25/20 08:19 Oxybutynin 5 Mg Tab PO 5 mg BID YOLIS Administration Sodium Chloride 10 ml 03/23/20 19:32 03/24/20 20:14 Flush - Normal Saline 10 Ml Syringe IVF 10 ml PRN PRN Administration Saline Flush - Exam General Appearance: awake alert Eye: PERRL ENT: normocephalic atraumatic Neck: supple Respiratory: CTAB Cardiovascular: RRR Gastrointestinal: soft Extremities: no cyanosis Skin: normal turgor Neurological: no new deficit Musculoskeletal: normal tone, normal strength, no muscle wasting PSYCH: normal affect, normal behavior, A&O x 3 Results - Labs Result Diagrams: 03/23/20 16:47 03/23/20 16:47 Lab results: WBC 11.3 thou/uL (4.8-10.8) H 03/23/20 16:47 Hgb 13.8 g/dL (14.0-18.0) L 03/23/20 16:47 Hct 43.2 % (42.0-52.0) 03/23/20 16:47 MCV 91.4 fL (78.0-98.0) 03/23/20 16:47 Plt Count 192 thou/uL (130-400) 03/23/20 16:47 Neutrophils % 69.5 % (42.0-75.0) 03/23/20 16:47 Sodium 142 mmol/L (136-145) 03/23/20 16:47 Potassium 4.2 mmol/L (3.5-5.1) 03/23/20 16:47 Chloride 103 mmol/L (98-107) 03/23/20 16:47 Carbon Dioxide 26 mmol/L (23-31) 03/23/20 16:47 BUN 16 mg/dL (8.4-25.7) 03/23/20 16:47 Creatinine 1.33 mg/dL (0.7-1.3) H 03/23/20 16:47 Glucose 122 mg/dL (80-115) H 03/23/20 16:47 Calcium 9.2 mg/dL (7.8-10.44) 03/23/20 16:47 Total Bilirubin 1.4 mg/dL (0.2-1.2) H 03/23/20 16:47 AST 11 U/L (5-34) 03/23/20 16:47 ALT 17 U/L (8-55) 03/23/20 16:47 Alkaline Phosphatase 94 U/L (40-110) 03/23/20 16:47 Troponin I 0.028 ng/mL (< 0.028) 03/23/20 23:45 B-Natriuretic Peptide 135.9 pg/mL (0-100) H 03/23/20 16:41 Serum Total Protein 6.3 g/dL (5.8-8.1) 03/23/20 16:47 Albumin 3.8 g/dL (3.4-4.8) 03/23/20 16:47 Urine Ketones Negative mg/dL (Negative) 03/24/20 06:22 Urine Blood Negative (Negative) 03/24/20 06:22 Urine Nitrite Negative (Negative) 03/24/20 06:22 Ur Leukocyte Esterase 250 Zay/uL (Negative) A 03/24/20 06:22 Urine RBC 0-3 HPF (0-3) 03/24/20 06:22 Urine WBC 7-10 HPF (0-3) A 03/24/20 06:22 Ur Squamous Epith Cells 0-3 HPF (0-3) 03/24/20 06:22 Urine Bacteria None Seen HPF (None Seen) 03/24/20 06:22 - Radiology Interpretation CT scan - head Additional Comment: Negative acute intracranial pathology PN A/P (1) Dizziness Code(s): R42 - DIZZINESS AND GIDDINESS Status: Acute (2) Bradycardia Code(s): R00.1 - BRADYCARDIA, UNSPECIFIED Status: Acute (3) BPH (benign prostatic hyperplasia) Code(s): N40.0 - BENIGN PROSTATIC HYPERPLASIA WITHOUT LOWER URINRY TRACT SYMP Status: Chronic (4) CAD (coronary artery disease) Code(s): I25.10 - ATHSCL HEART DISEASE OF [place] CORONARY ARTERY W/O ANG PCTRS Status: Chronic (5) CVA (cerebral vascular accident) Code(s): I63.9 - CEREBRAL INFARCTION, UNSPECIFIED Status: Chronic (6) DM2 (diabetes mellitus, type 2) Status: Chronic (7) HLD (hyperlipidemia) Code(s): E78.5 - HYPERLIPIDEMIA, UNSPECIFIED Status: Chronic (8) HTN (hypertension) Code(s): I10 - ESSENTIAL (PRIMARY) HYPERTENSION Status: Chronic (9) CAD (coronary artery disease) Code(s): I25.10 - ATHSCL HEART DISEASE OF [place] CORONARY ARTERY W/O ANG PCTRS Status: Acute (10) DM2 (diabetes mellitus, type 2) Status: Acute (11) Hemiparesis due to old cerebrovascular accident Code(s): I69.359 - HEMIPLGA FOLLOWING CEREBRAL INFARCTION AFFECTING UNSP SIDE Status: Acute (12) Obesity (BMI 30-39.9) Code(s): E66.9 - OBESITY, UNSPECIFIED Status: Chronic - Plan Daily Plan: PT/OT, speech therapy, DVT proph w/SCDs Mr. North is a 59-year-old male with history significant for coronary artery disease, hypertension, s/p AICD placement presented with dizziness. Neurology consulted to rule out posterior circulation stroke. Dizziness is much improved at this time. Awaiting MRI of the brain to rule out acute intracranial process if AICD is comp atible with MRI. Most likely tomorrow. Continue aspirin and high intensity statin for secondary stroke prevention. Telemetry -bradycardia. Cardiology is on board. AICD interrogated which showed an episode of abnormal rhythm. Consider EP input. Neurochecks every 4 hours. Monitor blood pressure and blood glucose Continue home medications. Continue medical management per primary team. PT/OT/speech. Plan discussed in detail with the patient.
--- NOTE | 2020-03-25 16:27 | PDOC.CPN ---
- Subjective Date: 03/25/20 Time: 16:22 Interval history: Patient HR has remained v-paced in the 50's today. He states that this morning, he felt dizzy for several hours, he states that he feels much better now and denies dizziness, chest pain, shortness of breath palpitations. He is anxious about his defibrilator re-firing today. - Review of Systems General: denies: fever/chills, weight/appetite/sleep changes, night sweats, fatigue Respiratory: denies: cough, congestion, shortness of breath, exercise intolerance Cardiovascular: denies: chest pain, palpitation, edema, paroxysmal nocturnal dyspnea, orthopnea (patient was c/o dizziness for several hours today. Dizziness resolved upon examination today) Gastrointestinal: denies: nausea, vomiting, diarrhea, constipation, abd pain, GI bleeding Musculoskeletal: denies: pain, tenderness, stiffness, swelling, arthritis/arthralgias Neurological: denies: numbness, syncope, seizure, weakness - Objective Allergies/Adverse Reactions: Allergies Allergy/AdvReac Type Severity Reaction Status Date / Time No Known Allergies Allergy Verified 03/24/20 05:55 Visit Medications: Current Medications Acetaminophen (Acetaminophen 500 Mg Tab) 1,000 mg PO Q8H PRN PRN Reason: Headache/Fever/Mild Pain (1-3) Last Admin: 03/24/20 20:15 Dose: 1,000 mg Documented by: Amiodarone HCl (Amiodarone 200 Mg Tab) 200 mg PO TID [facility] Last Admin: 03/25/20 14:50 Dose: 200 mg Documented by: Apixaban (Apixaban 5 Mg Tab) 5 mg PO BID [facility] Last Admin: 03/25/20 08:19 Dose: 5 mg Documented by: Aspirin (Aspirin 81 Mg Enteric Coated Tablet) 81 mg PO DAILY [facility] Last Admin: 03/25/20 08:18 Dose: 81 mg Documented by: Atorvastatin Calcium (Atorvastatin Calcium 40 Mg Tab) 40 mg PO [facility] Last Admin: 03/24/20 20:15 Dose: 40 mg Documented by: Carvedilol (Carvedilol 6.25 Mg Tab) 12.5 mg PO BID-[facility] Last Admin: 03/25/20 08:19 Dose: 12.5 mg Documented by: Clopidogrel Bisulfate (Clopidogrel Bisulfate 75 Mg Tab) 75 mg PO [facility] Last Admin: 03/24/20 20:15 Dose: 75 mg Documented by: Dextrose/Water (Dextrose 50% Abboject 50 Ml Syringe) 25 gm SLOW IVP PRN PRN PRN Reason: Hypoglycemia Furosemide (Furosemide 40 Mg Tab) 40 mg PO 0600,1400 [facility] Last Admin: 03/25/20 14:50 Dose: 40 mg Documented by: Glucagon (Glucagon 1 Mg/Ml Vial) 1 mg IM PRN PRN PRN Reason: Hypoglycemia Hydralazine HCl (Hydralazine 20 Mg/Ml Vial) 10 mg SLOW IVP Q4H PRN PRN Reason: BP > 220/110 Dextrose/Water (D5w) 1,000 mls @ 0 mls/hr IV .Q0M PRN PRN Reason: Hypoglycemia Insulin Human Lispro (Humalog 300 Units/3 Ml Vial) 0 units SC .MILD SLIDING SCALE PRN PRN Reason: Mild Correctional Scale Last Admin: 03/25/20 12:12 Dose: 3 unit Documented by: Insulin Human Lispro (Humalog 300 Units/3 Ml Vial) 0 units SC .BEDTIME SLIDING SC PRN PRN Reason: Bedtime Correctional Scale Isosorbide Mononitrate (Isosorbide Mononitrate Er 30 Mg Tab) 30 mg PO BID [facility] Last Admin: 03/25/20 08:20 Dose: 30 mg Documented by: Lisinopril (Lisinopril 20 Mg Tab) 20 mg PO DAILY [facility] Last Admin: 03/25/20 08:21 Dose: 20 mg Documented by: Oxybutynin Chloride (Oxybutynin 5 Mg Tab) 5 mg PO BID [facility] Last Admin: 03/25/20 08:19 Dose: 5 mg Documented by: Sodium Chloride (Flush - Normal Saline 10 Ml Syringe) 10 ml IVF PRN PRN PRN Reason: Saline Flush Last Admin: 03/24/20 20:14 Dose: 10 ml Documented by: Sodium Chloride (Flush - Normal Saline 10 Ml Syringe) 10 ml IVF PRN PRN PRN Reason: Saline Flush Vital Signs & Weight: Vital Signs Temp Pulse Resp BP BP Pulse Ox 03/25/20 15:48 98.3 F 55 L 16 106/76 97 03/25/20 12:00 98.2 F 54 L 16 114/81 96 03/25/20 08:08 97.8 F 52 L 17 115/80 95 Weight 261 lb 4.8 oz - Quality Measures Condition: Heart Failure CV meds: Beta Almita: Yes, AYE/ARB: Yes, Statin: Yes, ASA: Yes, Plavix/Effient/Brilinta: Yes, Anticoagulant: Yes (Eliquis ) - Physical Exam General: alert & oriented x3, appears well, no apparent distress HEENT: mucus membranes moist Neck: supple neck, midline trachea, no JVD/HJR, no masses, no bruit Cardiac: regular rate and rhythm Lungs: clear to auscultation, normal breath sounds, no wheeze, rales, rhonchi Neuro: grossly intact, motor function intact Abdomen: active bowel sounds, soft (obese abdomen), non-tender Extremities: no cyanosis, no clubbing, 1+ LE edema (1+ right LE edema, patient states that this is chronic for his since his CVA. No edema to right LE.), 2+ Posterior Tibial, 2+ Dorsalis Pedus Skin: clear Musculoskeletal: normal range of motion, no pain - Labs Result Diagrams: 03/23/20 16:47 03/23/20 16:47 Troponin/CKMB Troponin I 0.028 ng/mL (< 0.028) 03/23/20 23:45 - EKG Interpretation EKG Method: Telemetry EKG: other (V-paced HR 50's) - Assessment/Plan Assessment/Plan: 1. Dizziness: resolved this afternoon, patient still having dizzy episodes, has MRI scheduled to r/o CVA 2. Cardiomyopathy: records state he has ECHO from 03/15/20, patient cannot recall if he had ECHO, I cannot find reports of this suspected ECHO and last ECHO in office was 09/2019, we will re-order ECHO for evaluation of left vent ricular systolic function d/t revent firing of AICD. He has EP consult ordered, will see tomorrow. 3. History of hypertension: patient re-started on home Lisinopril, we will continue beta almita, well controlled at this time. We will not increase his betablocker d/t BP in 100's systolic. 4. History of CVA with right sided weakness: will continue ASA, plavix, and Eliquis 5. Hyperlipidemia: last LDL 60, well controlled, will continue Atorvastatin 40 mg daily 6. Coronary artery disease: Patient had normal stress test in 09/2019. We will continue his Coreg, Isosorbide mononitrate, AYE inhibitor Pt. seen and eval. by me. I agree with the [employer]. he did c/o of dizziness this AM for several hours but only had 4 beats that were paced. The remainder of the time he had sinus bradycardia with a prolonged QT. EP to see tomorrow.
--- NOTE | 2020-03-25 17:18 | PDOC.HOSPP ---
- Subjective Encounter Date: 03/25/20 Encounter Time: 13:45 Subjective: Patient up in bed was dizzy this morning however feels much better today. - Objective Vital Signs & Weight: Vital Signs (12 hours) Temp Pulse Pulse Pulse Resp BP BP 03/25/20 15:48 98.3 F 55 L 16 03/25/20 14:10 56 L 57 L 120/78 138/87 03/25/20 12:00 98.2 F 54 L 16 03/25/20 08:08 97.8 F 52 L 17 BP BP Pulse Ox 03/25/20 15:48 106/76 97 03/25/20 14:10 03/25/20 12:00 114/81 96 03/25/20 08:08 115/80 95 Weight Weight 261 lb 4.8 oz I&O: 03/24/20 03/25/20 03/26/20 06:59 06:59 06:59 Intake Total 540 Output Total 800 760 Balance -800 -220 Result Diagrams: 03/23/20 16:47 03/23/20 16:47 Additional Labs: Accuchecks 03/25/20 03/25/20 03/25/20 16:39 09:51 05:12 POC Glucose 211 H 243 H 162 H 03/24/20 03/24/20 20:39 17:36 POC Glucose 157 H 174 H Hospitalist ROS - Review of Systems Respiratory: denies: cough, dry, shortness of breath, hemoptysis, SOB with excertion, pleuritic pain, sputum, wheezing, other Cardiovascular: reports: light headedness Gastrointestinal: denies: nausea, vomiting, abdominal pain, diarrhea, constipation, melena, hematochezia, other Genitourinary: denies: dysuria, frequency, incontinence, hematuria, retention, other - Medication Medications: Active Medications Generic Name Dose Route Start Last Admin Trade Name Freq PRN Reason Stop Dose Admin Acetaminophen 1,000 mg 03/23/20 20:56 03/24/20 20:15 Acetaminophen 500 Mg Tab PO 1,000 mg Q8H PRN Administration Headache/Fever/Mild Pain (1-3) Amiodarone HCl 200 mg 03/24/20 15:00 03/25/20 14:50 Amiodarone 200 Mg Tab PO 200 mg TID YOLIS Administration Apixaban 5 mg 03/23/20 21:00 03/25/20 08:19 Apixaban 5 Mg Tab PO 5 mg BID YOLIS Administration Aspirin 81 mg 03/24/20 09:00 03/25/20 08:18 Aspirin 81 Mg Enteric Coated Tablet PO 81 mg DAILY YOLIS Administration Atorvastatin Calcium 40 mg 03/23/20 21:00 03/24/20 20:15 Atorvastatin Calcium 40 Mg Tab PO 40 mg HS YOLIS Administration Carvedilol 12.5 mg 03/24/20 17:00 03/25/20 08:19 Carvedilol 6.25 Mg Tab PO 12.5 mg BID-WM YOLIS Administration Clopidogrel Bisulfate 75 mg 03/23/20 21:00 03/24/20 20:15 Clopidogrel Bisulfate 75 Mg Tab PO 75 mg HS YOLIS Administration Furosemide 40 mg 03/24/20 06:00 03/25/20 14:50 Furosemide 40 Mg Tab PO 40 mg 0600,1400 YOLIS Administration Insulin Human Lispro 0 units 03/23/20 19:34 03/25/20 12:12 Humalog 300 Units/3 Ml Vial SC 3 unit .MILD SLIDING SCALE PRN Administration Mild Correctional Scale Isosorbide Mononitrate 30 mg 03/24/20 21:00 03/25/20 08:20 Isosorbide Mononitrate Er 30 Mg Tab PO 30 mg BID YOLIS Administration Lisinopril 20 mg 03/25/20 09:00 03/25/20 08:21 Lisinopril 20 Mg Tab PO 20 mg DAILY YOLIS Administration Oxybutynin Chloride 5 mg 03/23/20 21:00 03/25/20 08:19 Oxybutynin 5 Mg Tab PO 5 mg BID YOLIS Administration Sodium Chloride 10 ml 03/23/20 19:32 03/24/20 20:14 Flush - Normal Saline 10 Ml Syringe IVF 10 ml PRN PRN Administration Saline Flush - Exam Neck: negative: supple, symmetric, no JVD, no thyromegaly, no lymphadenopathy, no carotid bruit, JVD Heart: negative: RRR, no murmur, no gallops, no rubs, normal peripheral pulses, irregular, diminshed peripheral pulses, murmur present, II/IV, III/IV Respiratory: negative: CTAB, no wheezes, no rales, no ronchi, normal chest expansion, no tachypnea, normal percussion, rales, rhonchi, tachypneic, wheezes Gastrointestinal: negative: soft, non-tender, non-distended, normal bowel sounds, no palpable masses, no hepatomegaly, no splenomegaly, no bruit, no guarding, no rigidity, tender to palpation, distended, diminished bowl sounds, voluntary guarding Hosp A/P (1) Bradycardia Code(s): R00.1 - BRADYCARDIA, UNSPECIFIED Status: Acute (2) CAD (coronary artery disease) Code(s): I25.10 - ATHSCL HEART DISEASE OF [place] CORONARY ARTERY W/O ANG PCTRS Status: Chronic (3) CVA (cerebral vascular accident) Code(s): I63.9 - CEREBRAL INFARCTION, UNSPECIFIED Status: Chronic (4) DM2 (diabetes mellitus, type 2) Status: Chronic (5) HLD (hyperlipidemia) Code(s): E78.5 - HYPERLIPIDEMIA, UNSPECIFIED Status: Chronic (6) HTN (hypertension) Code(s): I10 - ESSENTIAL (PRIMARY) HYPERTENSION Status: Chronic (7) Obesity (BMI 30-39.9) Code(s): E66.9 - OBESITY, UNSPECIFIED Status: Chronic - Plan Patient up in bed no complaints currently. He states that last night his blood pressure was really high and he was afraid that he might have a stroke. He was noted to be significantly bradycardic in the ER. Had prolonged QTC. We will repeat an EKG. Cardiology consulted. Patient most likely will require EP study. His AICD interrogation indicated few beats of V. tach on March 17. Electrolytes are stable. Patient currently on Eliquis. He did complain of some blurry vision this morning however this has improved. He is on Eliquis. We will get an MRI brain. 03/25 patient complaining of being dizzy this morning and feeling that his AICD is about to fire. Patient states that he feels much better now. EP consultation pending. MRI brain pending. We will continue current medications. We will add as needed stool softeners. Patient has been having significant bradycardia on the monitor. Repeat EKG indicated QTC of 578.
[2020-03-25] MEDS: Polyethylene Glycol 3350 17 GM Packet PO PRN (18:01)
[2020-03-25] MEDS: Atorvastatin Calcium 40 MG TAB PO SCH (19:42)
[2020-03-25] MEDS: Senokot S 8.6-50 MG TAB PO SCH (19:42)
[2020-03-25] MEDS: Clopidogrel Bisulfate 75 MG TAB PO SCH (19:44)
[2020-03-26] MEDS: Furosemide 40 MG TAB PO SCH ×2 (05:41→13:23)
[2020-03-26] MEDS: HumaLOG 300 UNITS/3 ML VIAL SC PRN ×3 (05:42→16:47)
[2020-03-26 05:51] VITALS: BMI 37.3
[2020-03-26] MEDS: Carvedilol 6.25 MG TAB PO SCH ×2 (09:35→16:46)
[2020-03-26] MEDS: Senokot S 8.6-50 MG TAB PO SCH ×2 (09:35→21:21)
[2020-03-26] MEDS: Lisinopril 20 MG TAB PO SCH (09:35)
[2020-03-26] MEDS: Apixaban 5 MG TAB PO SCH ×2 (09:35→21:20)
[2020-03-26] MEDS: Amiodarone 200 MG TAB PO SCH ×3 (09:36→21:20)
[2020-03-26] MEDS: Oxybutynin 5 MG TAB PO SCH ×2 (09:36→21:20)
[2020-03-26] MEDS: Aspirin 81 mg Enteric Coated Tablet PO SCH (09:36)
[2020-03-26] MEDS: Polyethylene Glycol 3350 17 GM Packet PO SCH (09:36)
--- NOTE | 2020-03-26 12:09 | PDOC.NEUPN ---
- Subjective Encounter Date: 03/26/20 Subjective: Mr. North feels much better today and was able to participate in physical therapy session and walked around the hallway. - Objective Vital Signs & Weight: Vital Signs (12 hours) Temp Pulse Resp BP BP BP Pulse Ox 03/26/20 11:13 97.9 F 73 20 126/86 96 03/26/20 09:35 124/87 03/26/20 07:24 98 F 62 20 124/87 96 03/26/20 03:50 97.8 F 61 16 105/74 93 L Weight Weight 260 lb I&O: 03/25/20 03/26/20 03/27/20 06:59 06:59 06:59 Intake Total 540 240 Output Total 760 1190 150 Balance -220 -950 -150 Result Diagrams: 03/23/20 16:47 03/23/20 16:47 Additional Labs: Accuchecks 03/26/20 03/26/20 03/25/20 11:10 05:38 21:49 POC Glucose 225 H 173 H 175 H 03/25/20 16:39 POC Glucose 211 H Radiology Reviewed by me: Yes EKG Reviewed by me: Yes ROS - Review of Systems Constitutional: denies: fever, chills, sweats, weakness, malaise, other Eyes: denies: pain, vision change, conjunctivae inflammation, eyelid inflammation, redness, other ENT: denies: ear pain, ear discharge, nose pain, nose discharge, nose congestion, mouth pain, mouth swelling, throat pain, throat swelling, other Gastrointestinal: denies: nausea, vomiting, abdominal pain, diarrhea, constipation, melena, hematochezia, other Musculoskeletal: denies: neck pain, shoulder pain, arm pain, back pain, hand pain, leg pain, foot pain, other All Systems: All other systems reviewed; all pertinent +/- noted in HPI/Subj - Medication Medications: Active Medications Generic Name Dose Route Start Last Admin Trade Name Freq PRN Reason Stop Dose Admin Acetaminophen 1,000 mg 03/23/20 20:56 03/24/20 20:15 Acetaminophen 500 Mg Tab PO 1,000 mg Q8H PRN Administration Headache/Fever/Mild Pain (1-3) Amiodarone HCl 200 mg 03/24/20 15:00 03/26/20 09:36 Amiodarone 200 Mg Tab PO 200 mg TID YOLIS Administration Apixaban 5 mg 03/23/20 21:00 03/26/20 09:35 Apixaban 5 Mg Tab PO 5 mg BID YOLIS Administration Aspirin 81 mg 03/24/20 09:00 03/26/20 09:36 Aspirin 81 Mg Enteric Coated Tablet PO 81 mg DAILY YOLIS Administration Atorvastatin Calcium 40 mg 03/23/20 21:00 03/25/20 19:42 Atorvastatin Calcium 40 Mg Tab PO 40 mg HS YOLIS Administration Carvedilol 12.5 mg 03/24/20 17:00 03/26/20 09:35 Carvedilol 6.25 Mg Tab PO 12.5 mg BID-WM YOLIS Administration Clopidogrel Bisulfate 75 mg 03/23/20 21:00 03/25/20 19:44 Clopidogrel Bisulfate 75 Mg Tab PO 75 mg HS YOLIS Administration Furosemide 40 mg 03/24/20 06:00 03/26/20 05:41 Furosemide 40 Mg Tab PO 40 mg 0600,1400 YOLIS Administration Insulin Human Lispro 0 units 03/23/20 19:34 03/26/20 11:32 Humalog 300 Units/3 Ml Vial SC 3 unit .MILD SLIDING SCALE PRN Administration Mild Correctional Scale Isosorbide Mononitrate 30 mg 03/24/20 21:00 03/26/20 09:35 Isosorbide Mononitrate Er 30 Mg Tab PO 30 mg BID YOLSI Administration Lisinopril 20 mg 03/25/20 09:00 03/26/20 09:35 Lisinopril 20 Mg Tab PO 20 mg DAILY YOLIS Administration Oxybutynin Chloride 5 mg 03/23/20 21:00 03/26/20 09:36 Oxybutynin 5 Mg Tab PO 5 mg BID YOLIS Administration Polyethylene Glycol 17 gm 03/26/20 09:00 03/26/20 09:36 Polyethylene Glycol 3350 17 Gm Packet PO 17 gm DAILY YOLIS Administration Polyethylene Glycol 17 gm 03/25/20 17:16 03/25/20 18:01 Polyethylene Glycol 3350 17 Gm Packet PO 17 gm DAILYPRN PRN Administration Constipation Senna/Docusate Sodium 1 tab 03/25/20 21:00 03/26/20 09:35 Senokot S 8.6-50 Mg Tab PO 1 tab BID YOLIS Administration Sodium Chloride 10 ml 03/23/20 19:32 03/25/20 19:40 Flush - Normal Saline 10 Ml Syringe IVF 10 ml PRN PRN Administration Saline Flush - Exam General Appearance: awake alert Eye: PERRL ENT: normocephalic atraumatic Neck: supple Respiratory: CTAB Cardiovascular: RRR Gastrointestinal: soft Extremities: no cyanosis Skin: normal turgor Neurological: CN's grossly intact, no weakness, no new deficit Musculoskeletal: normal tone, no muscle wasting PSYCH: normal affect, normal behavior, A&O x 3, oriented to person, oriented to place, oriented to time Results - Labs Result Diagrams: 03/23/20 16:47 03/23/20 16:47 Lab results: WBC 11.3 thou/uL (4.8-10.8) H 03/23/20 16:47 Hgb 13.8 g/dL (14.0-18.0) L 03/23/20 16:47 Hct 43.2 % (42.0-52.0) 03/23/20 16:47 MCV 91.4 fL (78.0-98.0) 03/23/20 16:47 Plt Count 192 thou/uL (130-400) 03/23/20 16:47 Neutrophils % 69.5 % (42.0-75.0) 03/23/20 16:47 Sodium 142 mmol/L (136-145) 03/23/20 16:47 Potassium 4.2 mmol/L (3.5-5.1) 03/23/20 16:47 Chloride 103 mmol/L (98-107) 03/23/20 16:47 Carbon Dioxide 26 mmol/L (23-31) 03/23/20 16:47 BUN 16 mg/dL (8.4-25.7) 03/23/20 16:47 Creatinine 1.33 mg/dL (0.7-1.3) H 03/23/20 16:47 Glucose 122 mg/dL (80-115) H 03/23/20 16:47 Calcium 9.2 mg/dL (7.8-10.44) 03/23/20 16:47 Total Bilirubin 1.4 mg/dL (0.2-1.2) H 03/23/20 16:47 AST 11 U/L (5-34) 03/23/20 16:47 ALT 17 U/L (8-55) 03/23/20 16:47 Alkaline Phosphatase 94 U/L (40-110) 03/23/20 16:47 Troponin I 0.028 ng/mL (< 0.028) 03/23/20 23:45 B-Natriuretic Peptide 135.9 pg/mL (0-100) H 03/23/20 16:41 Serum Total Protein 6.3 g/dL (5.8-8.1) 03/23/20 16:47 Albumin 3.8 g/dL (3.4-4.8) 03/23/20 16:47 Urine Ketones Negative mg/dL (Negative) 03/24/20 06:22 Urine Blood Negative (Negative) 03/24/20 06:22 Urine Nitrite Negative (Negative) 03/24/20 06:22 Ur Leukocyte Esterase 250 Zay/uL (Negative) A 03/24/20 06:22 Urine RBC 0-3 HPF (0-3) 03/24/20 06:22 Urine WBC 7-10 HPF (0-3) A 03/24/20 06:22 Ur Squamous Epith Cells 0-3 HPF (0-3) 03/24/20 06:22 Urine Bacteria None Seen HPF (None Seen) 03/24/20 06:22 - EKG Interpretation EKG: Sinus bradycardia - Radiology Interpretation CT scan - head Additional Comment: No acute intracranial pathology PN A/P (1) Dizziness Code(s): R42 - DIZZINESS AND GIDDINESS Status: Acute (2) Bradycardia Code(s): R00.1 - BRADYCARDIA, UNSPECIFIED Status: Acute (3) BPH (benign prostatic hyperplasia) Code(s): N40.0 - BENIGN PROSTATIC HYPERPLASIA WITHOUT LOWER URINRY TRACT SYMP Status: Chronic (4) CAD (coronary artery disease) Code(s): I25.10 - ATHSCL HEART DISEASE OF [place] CORONARY ARTERY W/O ANG PCTRS Status: Chronic (5) CVA (cerebral vascular accident) Code(s): I63.9 - CEREBRAL INFARCTION, UNSPECIFIED Status: Chronic (6) DM2 (diabetes mellitus, type 2) Status: Chronic (7) HLD (hyperlipidemia) Code(s): E78.5 - HYPERLIPIDEMIA, UNSPECIFIED Status: Chronic (8) HTN (hypertension) Code(s): I10 - ESSENTIAL (PRIMARY) HYPERTENSION Status: Chronic (9) CAD (coronary artery disease) Code(s): I25.10 - ATHSCL HEART DISEASE OF [place] CORONARY ARTERY W/O ANG PCTRS Status: Acute (10) DM2 (diabetes mellitus, type 2) Status: Acute (11) Hemiparesis due to old cerebrovascular accident Code(s): I69.359 - HEMIPLGA FOLLOWING CEREBRAL INFARCTION AFFECTING UNSP SIDE Status: Acute (12) Obesity (BMI 30-39.9) Code(s): E66.9 - OBESITY, UNSPECIFIED Status: Chronic - Plan Daily Plan: PT/OT, speech therapy, out of bed/ambulate Mr. North is a 59-year-old male with history significant for coronary artery disease, hypertension, s/p AICD placement presented with dizziness. Neurology consulted to rule out posterior circulation stroke. Dizziness is much improved at this time. He is able to walk with the physical therapist this morning. Head CT x2 - for acute intracranial pathology. Awaiting MRI of the brain to rule out acute intracranial process if AICD is compatible with MRI. However, it will not change the management even if positive for lacunar infarct since patient is already on aspirin and Eliquis. Continue aspirin, Eliquis and high intensity statin for secondary stroke prevention. Telemetry -bradycardia. Cardiology is on board. AICD interrogated which showed an episode of abnormal rhythm with prolonged QT interval. EP consult pending Neurochecks every 4 hours. Strict control of blood pressure and blood glucose Continue home medications. Continue medical management per primary team. PT/OT/speech. Plan discussed in detail with the patient and also with the case management.
--- NOTE | 2020-03-26 13:06 | PDOC.CPN ---
- Subjective Date: 03/26/20 Time: 12:24 Interval history: Patient had a good night, he is feeling much better today and denies any dizziness. His HR has remained SB/ SR in the 50's & 60's. He denies any chest pain, shortness of breath, dyspnea on exertion today. - Review of Systems General: denies: fever/chills, weight/appetite/sleep changes, night sweats, fatigue Respiratory: denies: cough, congestion, shortness of breath, exercise intolerance Cardiovascular: denies: chest pain, palpitation, edema, paroxysmal nocturnal dyspnea, orthopnea Gastrointestinal: denies: nausea, vomiting, diarrhea, constipation, abd pain, GI bleeding Musculoskeletal: denies: pain, tenderness, stiffness, swelling, arthritis/arthralgias Neurological: denies: numbness, syncope, seizure, weakness - Objective Allergies/Adverse Reactions: Allergies Allergy/AdvReac Type Severity Reaction Status Date / Time No Known Allergies Allergy Verified 03/24/20 05:55 Visit Medications: Current Medications Acetaminophen (Acetaminophen 500 Mg Tab) 1,000 mg PO Q8H PRN PRN Reason: Headache/Fever/Mild Pain (1-3) Last Admin: 03/24/20 20:15 Dose: 1,000 mg Documented by: Amiodarone HCl (Amiodarone 200 Mg Tab) 200 mg PO TID [facility] Last Admin: 03/26/20 09:36 Dose: 200 mg Documented by: Apixaban (Apixaban 5 Mg Tab) 5 mg PO BID [facility] Last Admin: 03/26/20 09:35 Dose: 5 mg Documented by: Aspirin (Aspirin 81 Mg Enteric Coated Tablet) 81 mg PO DAILY [facility] Last Admin: 03/26/20 09:36 Dose: 81 mg Documented by: Atorvastatin Calcium (Atorvastatin Calcium 40 Mg Tab) 40 mg PO [facility] Last Admin: 03/25/20 19:42 Dose: 40 mg Documented by: Carvedilol (Carvedilol 6.25 Mg Tab) 12.5 mg PO BID[facility] Last Admin: 03/26/20 09:35 Dose: 12.5 mg Documented by: Clopidogrel Bisulfate (Clopidogrel Bisulfate 75 Mg Tab) 75 mg PO [facility] Last Admin: 03/25/20 19:44 Dose: 75 mg Documented by: Dextrose/Water (Dextrose 50% Abboject 50 Ml Syringe) 25 gm SLOW IVP PRN PRN PRN Reason: Hypoglycemia Furosemide (Furosemide 40 Mg Tab) 40 mg PO 0600,1400 [facility] Last Admin: 03/26/20 05:41 Dose: 40 mg Documented by: Glucagon (Glucagon 1 Mg/Ml Vial) 1 mg IM PRN PRN PRN Reason: Hypoglycemia Hydralazine HCl (Hydralazine 20 Mg/Ml Vial) 10 mg SLOW IVP Q4H PRN PRN Reason: BP > 220/110 Dextrose/Water (D5w) 1,000 mls @ 0 mls/hr IV .Q0M PRN PRN Reason: Hypoglycemia Insulin Human Lispro (Humalog 300 Units/3 Ml Vial) 0 units SC .MILD SLIDING SCALE PRN PRN Reason: Mild Correctional Scale Last Admin: 03/26/20 11:32 Dose: 3 unit Documented by: Insulin Human Lispro (Humalog 300 Units/3 Ml Vial) 0 units SC .BEDTIME SLIDING SC PRN PRN Reason: Bedtime Correctional Scale Isosorbide Mononitrate (Isosorbide Mononitrate Er 30 Mg Tab) 30 mg PO BID [facility] Last Admin: 03/26/20 09:35 Dose: 30 mg Documented by: Lisinopril (Lisinopril 20 Mg Tab) 20 mg PO DAILY [facility] Last Admin: 03/26/20 09:35 Dose: 20 mg Documented by: Oxybutynin Chloride (Oxybutynin 5 Mg Tab) 5 mg PO BID [facility] Last Admin: 03/26/20 09:36 Dose: 5 mg Documented by: Polyethylene Glycol (Polyethylene Glycol 3350 17 Gm Packet) 17 gm PO DAILY [facility] Last Admin: 03/26/20 09:36 Dose: 17 gm Documented by: Polyethylene Glycol (Polyethylene Glycol 3350 17 Gm Packet) 17 gm PO DAILYPRN PRN PRN Reason: Constipation Last Admin: 03/25/20 18:01 Dose: 17 gm Documented by: Senna/Docusate Sodium (Senokot S 8.6-50 Mg Tab) 1 tab PO BID [facility] Last Admin: 03/26/20 09:35 Dose: 1 tab Documented by: Sodium Chloride (Flush - Normal Saline 10 Ml Syringe) 10 ml IVF PRN PRN PRN Reason: Saline Flush Last Admin: 03/25/20 19:40 Dose: 10 ml Documented by: Sodium Chloride (Flush - Normal Saline 10 Ml Syringe) 10 ml IVF PRN PRN PRN Reason: Saline Flush Vital Signs & Weight: Vital Signs Temp Pulse Pulse Resp BP BP BP 03/26/20 11:28 52 L 119/89 03/26/20 11:13 97.9 F 73 20 126/86 03/26/20 09:35 124/87 03/26/20 07:24 98 F 62 20 124/87 03/26/20 03:50 97.8 F 61 16 BP Pulse Ox 03/26/20 11:28 03/26/20 11:13 96 03/26/20 09:35 03/26/20 07:24 96 03/26/20 03:50 105/74 93 L Weight 260 lb - Quality Measures Condition: Heart Failure CV meds: Beta Almita: Yes, AYE/ARB: Yes, Statin: Yes, ASA: Yes, Plavix/Effient/Brilinta: Yes, Anticoagulant: Yes (Eliquis ) - Physical Exam General: alert & oriented x3, appears well, no apparent distress HEENT: mucus membranes moist Neck: supple neck, midline trachea, no masses, no bruit Cardiac: regular rate and rhythm Lungs: clear to auscultation, no wheeze, rales, rhonchi Neuro: grossly intact, weakness (right sided weakness from previous CVA) Abdomen: active bowel sounds, soft, non-tender Extremities: no cyanosis, no clubbing, 1+ LE edema (1+ edema to right LE, this has been present since his CVA. no new findings), 2+ Posterior Tibial, 2+ Dorsalis Pedus Skin: clear Musculoskeletal: no pain - Labs Result Diagrams: 03/26/20 08:55 03/26/20 08:55 Troponin/CKMB Troponin I 0.028 ng/mL (< 0.028) 03/23/20 23:45 - EKG Interpretation EKG Method: Telemetry EKG: sinus rhythm - Assessment/Plan Assessment/Plan: 1. Dizziness: no c/o of dizziness today, has MRI scheduled to r/o CVA 2. Cardiomyopathy: records state he has ECHO from 03/15/20, patient cannot recall if he had ECHO, I cannot find reports of this suspected ECHO and last ECHO in office was 09/2019, we will re-order ECHO for evaluation of left ventricular systolic function d/t recent firing of AICD. He has EP consult order ed, will see tomorrow. 3. History of hypertension: patient re-started on home Lisinopril, we will c ontinue beta almita, well controlled at this time. His BP has remained well controlled throughout the night and today. His most recent BP 126/86. We will continue with current treatment and await ECHO results. 4. History of CVA with right sided weakness: will continue ASA, plavix, and Eliquis 5. Hyperlipidemia: last LDL 60, well controlled, will continue Atorvastatin 40 mg daily 6. Coronary artery disease: Patient had normal stress test in 09/2019. We will continue his Coreg, Isosorbide mononitrate, AYE inhibitor I agree with the A/P above. EP will see the pt. and determine if any adjustments to the AICD is indicated. EF in the 35% range. See echo report done today. velma
[2020-03-26] MEDS ORDERED: Lisinopril 20 MG TAB PO SCH (14:27)
[2020-03-26] MEDS ORDERED: Sodium Chloride 0.9% 1,000 ML IV SCH (14:30)
[2020-03-26 15:56] LABS: Hemoglobin 14.7 g/dL (14.0-18.0); Platelet Count 178 thou/uL (130-400)
--- NOTE | 2020-03-26 17:37 | PDOC.HOSPP ---
- Subjective Encounter Date: 03/26/20 Encounter Time: 11:15 Subjective: Patient up in bed no complaints today. - Objective Vital Signs & Weight: Vital Signs (12 hours) Temp Pulse Pulse Resp BP BP BP 03/26/20 16:46 144/92 H 03/26/20 15:10 97.3 F L 72 16 03/26/20 11:28 52 L 119/89 03/26/20 11:13 97.9 F 73 20 126/86 03/26/20 09:35 124/87 03/26/20 07:24 98 F 62 20 124/87 BP BP BP Pulse Ox 03/26/20 16:46 03/26/20 15:10 130/86 109/83 152/84 H 94 L 03/26/20 11:28 03/26/20 11:13 96 03/26/20 09:35 03/26/20 07:24 96 Weight Weight 260 lb I&O: 03/25/20 03/26/20 03/27/20 06:59 06:59 06:59 Intake Total 828 905 0614 Output Total 760 1190 150 Balance -220 -950 1050 Result Diagrams: 03/26/20 08:55 03/26/20 08:55 Additional Labs: Accuchecks 03/26/20 03/26/20 03/26/20 16:37 11:10 05:38 POC Glucose 168 H 225 H 173 H 03/25/20 21:49 POC Glucose 175 H Hospitalist ROS - Review of Systems Respiratory: denies: cough, dry, shortness of breath, hemoptysis, SOB with excertion, pleuritic pain, sputum, wheezing, other Cardiovascular: denies: chest pain, palpitations, orthopnea, paroxysmal noc. dyspnea, edema, light headedness, other Gastrointestinal: denies: nausea, vomiting, abdominal pain, diarrhea, constipation, melena, hematochezia, other - Medication Medications: Active Medications Generic Name Dose Route Start Last Admin Trade Name Freq PRN Reason Stop Dose Admin Acetaminophen 1,000 mg 03/23/20 20:56 03/24/20 20:15 Acetaminophen 500 Mg Tab PO 1,000 mg Q8H PRN Administration Headache/Fever/Mild Pain (1-3) Amiodarone HCl 200 mg 03/24/20 15:00 03/26/20 15:21 Amiodarone 200 Mg Tab PO 200 mg TID YOLIS Administration Apixaban 5 mg 03/23/20 21:00 03/26/20 09:35 Apixaban 5 Mg Tab PO 5 mg BID YOLIS Administration Aspirin 81 mg 03/24/20 09:00 03/26/20 09:36 Aspirin 81 Mg Enteric Coated Tablet PO 81 mg DAILY YOLIS Administration Atorvastatin Calcium 40 mg 03/23/20 21:00 03/25/20 19:42 Atorvastatin Calcium 40 Mg Tab PO 40 mg HS YOLIS Administration Carvedilol 12.5 mg 03/24/20 17:00 03/26/20 16:46 Carvedilol 6.25 Mg Tab PO 12.5 mg BID-WM YOLIS Administration Clopidogrel Bisulfate 75 mg 03/23/20 21:00 03/25/20 19:44 Clopidogrel Bisulfate 75 Mg Tab PO 75 mg HS YOLIS Administration Furosemide 40 mg 03/24/20 06:00 03/26/20 13:23 Furosemide 40 Mg Tab PO 40 mg 0600,1400 YOLIS Administration Insulin Human Lispro 0 units 03/23/20 19:34 03/26/20 16:47 Humalog 300 Units/3 Ml Vial SC 2 unit .MILD SLIDING SCALE PRN Administration Mild Correctional Scale Isosorbide Mononitrate 30 mg 03/24/20 21:00 03/26/20 09:35 Isosorbide Mononitrate Er 30 Mg Tab PO 30 mg BID YOLIS Administration Oxybutynin Chloride 5 mg 03/23/20 21:00 03/26/20 09:36 Oxybutynin 5 Mg Tab PO 5 mg BID YOLIS Administration Polyethylene Glycol 17 gm 03/26/20 09:00 03/26/20 09:36 Polyethylene Glycol 3350 17 Gm Packet PO 17 gm DAILY YOLIS Administration Polyethylene Glycol 17 gm 03/25/20 17:16 03/25/20 18:01 Polyethylene Glycol 3350 17 Gm Packet PO 17 gm DAILYPRN PRN Administration Constipation Senna/Docusate Sodium 1 tab 03/25/20 21:00 03/26/20 09:35 Senokot S 8.6-50 Mg Tab PO 1 tab BID YOLIS Administration Sodium Chloride 10 ml 03/23/20 19:32 03/25/20 19:40 Flush - Normal Saline 10 Ml Syringe IVF 10 ml PRN PRN Administration Saline Flush - Exam Neck: negative: supple, symmetric, no JVD, no thyromegaly, no lymphadenopathy, no carotid bruit, JVD Heart: negative: RRR, no murmur, no gallops, no rubs, normal peripheral pulses, irregular, diminshed peripheral pulses, murmur present, II/IV, III/IV Respiratory: negative: CTAB, no wheezes, no rales, no ronchi, normal chest expansion, no tachypnea, normal percussion, rales, rhonchi, tachypneic, wheezes Hosp A/P (1) Bradycardia Code(s): R00.1 - BRADYCARDIA, UNSPECIFIED Status: Acute (2) CAD (coronary artery disease) Code(s): I25.10 - ATHSCL HEART DISEASE OF [place] CORONARY ARTERY W/O ANG PCTRS Status: Chronic (3) CVA (cerebral vascular accident) Code(s): I63.9 - CEREBRAL INFARCTION, UNSPECIFIED Status: Chronic (4) DM2 (diabetes mellitus, type 2) Status: Chronic (5) HLD (hyperlipidemia) Code(s): E78.5 - HYPERLIPIDEMIA, UNSPECIFIED Status: Chronic (6) HTN (hypertension) Code(s): I10 - ESSENTIAL (PRIMARY) HYPERTENSION Status: Chronic (7) Obesity (BMI 30-39.9) Code(s): E66.9 - OBESITY, UNSPECIFIED Status: Chronic - Plan Patient up in bed no complaints currently. He states that last night his blood pressure was really high and he was afraid that he might have a stroke. He was noted to be significantly bradycardic in the ER. Had prolonged QTC. We will repeat an EKG. Cardiology consulted. Patient most likely will require EP study. His AICD interrogation indicated few beats of V. tach on March 17. Electrolytes are stable. Patient currently on Eliquis. He did complain of some blurry vision this morning however this has improved. He is on Eliquis. We will get an MRI brain. 03/25 patient complaining of being dizzy this morning and feeling that his AICD is about to fire. Patient states that he feels much better now. EP consultation pending. MRI brain pending. We will continue current medications. We will add as needed stool softeners. Patient has been having significant bradycardia on the monitor. Repeat EKG indicated QTC of 578. 03/26 patient states that he feels well today. MRI brain pending. EP saw patient today. Possible discharge in a.m.
--- NOTE | 2020-03-26 20:37 | CON ---
DATE OF CONSULTATION: 03/26/2020 REASON FOR CONSULTATION: ICD management and recent defibrillation. PACKAGE LINE OPERATOR: Aron Cody MD HISTORY OF PRESENT ILLNESS: This is a 59-year-old male who presented to the emergency room reporting elevated blood pressure and pressure in his head. He had also had associated dizziness, blurred vision, unstable gait, and palpitations. Given his history for stroke, he was concerned he may have been having repeat stroke event. He was hospitalized a week before at the [facility] following his defibrillator firing multiple times. Records from that stay indicate that he was started on amiodarone as his ICD interrogation had been interpreted as ventricular fibrillation leading up to his ICD shocks. He does have a history of paroxysmal atrial fibrillation as well, following with Dr. Cody, and has been on Eliquis for approximately 2 years. He has not had any repeat ICD shocks since being placed on amiodarone. EP consultation is requested given his recent ICD defibrillations. Mr. North is currently feeling well. He reports his blood pressure has been under better control compared to prior to admission. He has had no more headaches, blurred vision, dizziness, gait instability, or heart palpitations. He has had no shortness of breath or repeat ICD shocks. REVIEW OF SYSTEMS: A 12-point review of systems is unremarkable. PROBLEM LIST: 1. Single-chamber Med[employer] ICD in-situ with recent shocks. 2. Hypertension. 3. Sinus bradycardia. 4. QT prolongation. 5. Nonsustained VT. 6. History of CVA in 2012 with right-sided paresthesias. 7. Coronary artery disease, status post CABG x4 in 2017. 8. BPH. 9. Hyperlipidemia. 10. Type 2 diabetes. ALLERGIES: NO KNOWN DRUG ALLERGIES. HOME MEDICATIONS: 1. Metformin 500 mg b.i.d. 2. Amiodarone 400 mg p.o. b.i.d. 3. Eliquis 5 mg b.i.d. 4. Ditropan 5 mg b.i.d. 5. Carvedilol 12.5 mg b.i.d. 6. Atorvastatin calcium 40 mg p.o. at bedtime. 7. Furosemide 40 mg p.o. b.i.d. 8. Aspirin 81 mg daily. 9. Lisinopril 10 mg at bedtime. 10. Imdur 30 mg daily. 11. Plavix 75 mg at bedtime. FAMILY HISTORY: Noncontributory. SOCIAL HISTORY: Denies alcohol, tobacco, or illicit drug use. OBJECTIVE: VITAL SIGNS: 5 feet 10 inches, 260 pounds, BMI 37. GENERAL: He is alert, oriented. Speech is clear. Affect is appropriate. He is in no apparent distress. HEENT: He is normocephalic and atraumatic. Sclerae anicteric. EOMs are intact. Oral mucosa is moist and pink with adequate dentition. NECK: Supple without jugular venous distention. His trachea is midline. He has no lymphadenopathy. LUNGS: Clear to auscultation bilaterally without wheezes, crackles, or rhonchi. HEART: Rate is regularly regular, slow, but with a crisp S1 and S2. PMI is nondisplaced. There is a left precordial device and site is without reaction. ABDOMEN: Large, nontender. No palpable masses. Bowel tones are distant. EXTREMITIES: Warm and dry to touch. Well perfused without clubbing, cyanosis, or edema. NEUROLOGIC: Grossly intact with residual right-sided deficits from his stroke in 2011 which are persisting. His gait was stable, ambulating from chair to bed without assistive device. LABORATORY DATA: Hematology on 03/23/2020 was unremarkable. Chemistry on 03/23 is reviewed. Potassium 4.2, creatinine 1.33, magnesium 2.4. Liver enzymes within normal ranges. BNP 135. TSH 1.9. Chest x-ray on 03/23, no evidence for acute cardiopulmonary process. ICD check [facility] was performed on 03/23. Device is functioning normally. There are some nonsustained ventricular tachycardia events, and EGM review suggests that these may be paroxysmal atrial arrhythmia events that are falling in the VT zone. The morphology does not shift and the QRS is narrow. There is a suspicion that this may have also been the story during his ICD shocks last week, although these events were clear during the transmission last week while hospitalized at [facility]. More thorough device interrogation will be done later today to review the EGMs from his prior events if possible. The lower rate limit was recently increased to 50 beats per minute and ventricular rate histograms suggest stable ventricular rates with no severe elevations, but a recent trending down in ventricular rates, now averaging in the 50s. Echocardiogram not performed, but pending. Telemetry and EKGs show sinus rhythm, sinus bradycardia mostly in the 50s and 60s. IMPRESSION: 1. Dizziness. 2. Cardiomyopathy, echo pending. 3. Hypertension. 4.Subacute cerebrovascular accident with residual right-sided weakness, followed by Neurology. 5. Sinus bradycardia, recently worsened with the recent addition of amiodarone loading last week. 6. Single-chamber ICD pending complete interrogation regarding the ICD shocks last week. 7. Coronary artery disease with prior bypass, status post normal stress test 10/15/2019. 8. Recently initiated Amiodarone for antiarrhythmic therapy, normal LFTs, TSH, chest x-ray 03/23/2020. PLAN AND RECOMMENDATIONS: Mr. North is a very pleasant 59-year-old gentleman, with a history of a single-chamber ICD and paroxysmal atrial fibrillation in addition to a prior stroke. He has been on aspirin, Plavix, and Eliquis consistently for years with no missed doses. He recently came in with uncontrolled hypertension, and Neurology is following to rule out any potential repeat stroke activity. During recent hospitalization last week, he was seen to have ICD defibrillation and there was concern that it may have been inappropriate, possibly shocks delivered for atrial arrhythmias given the narrow QRS complex seen on the nonsustained VT, EGMs on this transmission show occasional atrial fibrillaiton with RVR. More complete interrogation is pending. At this point, he remains on amiodarone, though given his new bradycardia, his home Coreg had been stopped and his amiodarone loading was reduced to 200 mg t.i.d. There is potentially some tachy-heidi syndrome going on here. In the future, if bradycardia worsens or persists and he continues to require antiarrhythmic support for suppression of his tachyarrhythmias, he may require upgrade to a dual-chamber system to prevent RV pacing. For now, I would recommend continuing amiodarone pending repeat interrogation of his recent tachyarrhythmia events. He will continue on Eliquis given his paroxysmal atrial fibrillation history. We could consider outpatient PVI later if his shocks were related to atrial arrhythmias, especially to get him off to avoid long-term therapy with amiodarone. Thank you for allowing me to participate in the care of this patient. We will continue to follow pending echo results and more thorough ICD interrogation. Job ID: [id number] [facility]
[2020-03-26] MEDS: Clopidogrel Bisulfate 75 MG TAB PO SCH (21:20)
[2020-03-26] MEDS: Atorvastatin Calcium 40 MG TAB PO SCH (21:21)
[2020-03-26] MEDS: Polyethylene Glycol 3350 17 GM Packet PO PRN (21:22)
[2020-03-27] MEDS ORDERED: Lisinopril 20 MG TAB PO SCH (09:00)
[2020-03-27] MEDS: Carvedilol 6.25 MG TAB PO SCH (09:11)
[2020-03-27] MEDS: Apixaban 5 MG TAB PO SCH (09:11)
[2020-03-27] MEDS: Aspirin 81 mg Enteric Coated Tablet PO SCH (09:11)
[2020-03-27] MEDS: Oxybutynin 5 MG TAB PO SCH (09:12)
[2020-03-27] MEDS: Amiodarone 200 MG TAB PO SCH (09:12)
[2020-03-27] MEDS: Senokot S 8.6-50 MG TAB PO SCH (09:15)
[2020-03-27] MEDS: Polyethylene Glycol 3350 17 GM Packet PO SCH (09:15)
--- NOTE | 2020-03-27 11:20 | MRI ---
MRI BRAIN WITHOUT CONTRAST: HISTORY: Stroke. Episode of blurred vision. CORRELATION: CT scan from 03/24/2020. FINDINGS: No restricted diffusion is seen. There are multiple foci of T2 prolongation in the periventricular wh ite matter, consistent with chronic small vessel ischemic disease. The ventricular size is appropriate and the basilar cisterns are patent. No evidence of acute infarct, hemorrhage, midline shift or abnormal extra-axial fluid collections is seen. There is mild mucosal disease in the paranasal sinuses. IMPRESSION: No evidence of acute intracranial process.
[2020-03-27 11:37] VITALS: BP 148/92; TEMP 97.5
--- NOTE | 2020-03-27 12:34 | PDOC.CPN ---
- Subjective Date: 03/27/20 Time: 07:45 Interval history: Patient had a good night, he is sitting up in chair and has already been walking down the hallway this morning. He denies any chest pain, shortness of breath. Still c/o intermittent dizziness but states it is getting better. He remains in sinus bradycardia 50's-60's. - Review of Systems General: denies: fever/chills, weight/appetite/sleep changes, night sweats, fatigue Cardiovascular: denies: chest pain, palpitation, edema, paroxysmal nocturnal dyspnea, orthopnea Gastrointestinal: denies: nausea, vomiting, diarrhea, constipation, abd pain, GI bleeding Musculoskeletal: denies: pain, tenderness, stiffness, swelling, a rthritis/arthralgias Neurological: denies: numbness, syncope, seizure, weakness - Objective Allergies/Adverse Reactions: Allergies Allergy/AdvReac Type Severity Reaction Status Date / Time No Known Allergies Allergy Verified 03/24/20 05:55 Visit Medications: Current Medications Acetaminophen (Acetaminophen 500 Mg Tab) 1,000 mg PO Q8H PRN PRN Reason: Headache/Fever/Mild Pain (1-3) Last Admin: 03/24/20 20:15 Dose: 1,000 mg Documented by: Amiodarone HCl (Amiodarone 200 Mg Tab) 200 mg PO TID [facility] Last Admin: 03/27/20 09:12 Dose: 200 mg Documented by: Apixaban (Apixaban 5 Mg Tab) 5 mg PO BID [facility] Last Admin: 03/27/20 09:11 Dose: 5 mg Documented by: Aspirin (Aspirin 81 Mg Enteric Coated Tablet) 81 mg PO DAILY [facility] Last Admin: 03/27/20 09:11 Dose: 81 mg Documented by: Atorvastatin Calcium (Atorvastatin Calcium 40 Mg Tab) 40 mg PO [facility] Last Admin: 03/26/20 21:21 Dose: 40 mg Documented by: Carvedilol (Carvedilol 6.25 Mg Tab) 12.5 mg PO BID-[facility] Last Admin: 03/27/20 09:11 Dose: 12.5 mg Documented by: Clopidogrel Bisulfate (Clopidogrel Bisulfate 75 Mg Tab) 75 mg PO [facility] Last Admin: 03/26/20 21:20 Dose: 75 mg Documented by: Dextrose/Water (Dextrose 50% Abboject 50 Ml Syringe) 25 gm SLOW IVP PRN PRN PRN Reason: Hypoglycemia Furosemide (Furosemide 40 Mg Tab) 40 mg PO 0600,1400 [facility] Last Admin: 03/26/20 13:23 Dose: 40 mg Documented by: Glucagon (Glucagon 1 Mg/Ml Vial) 1 mg IM PRN PRN PRN Reason: Hypoglycemia Hydralazine HCl (Hydralazine 20 Mg/Ml Vial) 10 mg SLOW IVP Q4H PRN PRN Reason: BP > 220/110 Dextrose/Water (D5w) 1,000 mls @ 0 mls/hr IV .Q0M PRN PRN Reason: Hypoglycemia Insulin Human Lispro (Humalog 300 Units/3 Ml Vial) 0 units SC .MILD SLIDING SCALE PRN PRN Reason: Mild Correctional Scale Last Admin: 03/26/20 16:47 Dose: 2 unit Documented by: Insulin Human Lispro (Humalog 300 Units/3 Ml Vial) 0 units SC .BEDTIME SLIDING SC PRN PRN Reason: Bedtime Correctional Scale Isosorbide Mononitrate (Isosorbide Mononitrate Er 30 Mg Tab) 30 mg PO BID [facility] Last Admin: 03/27/20 09:11 Dose: 30 mg Documented by: Lisinopril (Lisinopril 20 Mg Tab) 20 mg PO DAILY [facility] Last Admin: 03/27/20 09:11 Dose: 20 mg Documented by: Oxybutynin Chloride (Oxybutynin 5 Mg Tab) 5 mg PO BID [facility] Last Admin: 03/27/20 09:12 Dose: 5 mg Documented by: Polyethylene Glycol (Polyethylene Glycol 3350 17 Gm Packet) 17 gm PO DAILY [facility] Last Admin: 03/27/20 09:15 Dose: 17 gm Documented by: Polyethylene Glycol (Polyethylene Glycol 3350 17 Gm Packet) 17 gm PO DAILYPRN PRN PRN Reason: Constipation Last Admin: 03/26/20 21:22 Dose: 17 gm Documented by: Senna/Docusate Sodium (Senokot S 8.6-50 Mg Tab) 1 tab PO BID [facility] Last Admin: 03/27/20 09:15 Dose: 1 tab Documented by: Sodium Chloride (Flush - Normal Saline 10 Ml Syringe) 10 ml IVF PRN PRN PRN Reason: Saline Flush Last Admin: 03/25/20 19:40 Dose: 10 ml Documented by: Sodium Chloride (Flush - Normal Saline 10 Ml Syringe) 10 ml IVF PRN PRN PRN Reason: Saline Flush Vital Signs & Weight: Vital Signs Temp Pulse Resp BP BP BP Pulse Ox 03/27/20 11:25 97.5 F L 53 L 20 148/92 H 98 03/27/20 11:12 97 03/27/20 09:11 133/86 03/27/20 07:27 97.7 F 54 L 16 133/86 97 03/27/20 04:00 98.4 F 61 20 121/78 98 Weight 261 lb 3.2 oz - Quality Measures Condition: Heart Failure CV meds: Beta Almita: Yes, AYE/ARB: Yes, Statin: Yes, ASA: Yes, Plavix/Ef fient/Brilinta: Yes, Anticoagulant: Yes (Eliquis ) - Physical Exam General: alert & oriented x3, appears well, no apparent distress HEENT: mucus membranes moist, normocephaly Neck: supple neck, midline trachea, no JVD/HJR, no masses, no bruit Cardiac: regular rate and rhythm, no murmur Lungs: clear to auscultation, normal breath sounds, normal exam, no wheeze, rales, rhonchi Neuro: cranial nerve 2-12 intact, grossly intact Abdomen: unremarkable, soft, non-tender Extremities: no cyanosis, no clubbing, no edema (RLE edema better than yesterday, no edma noted today, patient states he has been walking several times throughout the day.) Skin: clear Musculoskeletal: normal range of motion, no pain, no fluid collection - Labs Result Diagrams: 03/26/20 08:55 03/26/20 08:55 Troponin/CKMB Troponin I 0.028 ng/mL (< 0.028) 03/23/20 23:45 - EKG Interpretation EKG Method: Telemetry EKG shows: bradycardia - Assessment/Plan Assessment/Plan: 1. Dizziness: no c/o of dizziness today, MRI of brain showed no evidence of acute infarct. 2. Cardiomyopathy: ECHO shows EF 35-40%, mild LVH, moderately dilated left atrium, mitral annular calcification, mild to moderate tricuspid regurgitation. 3. History of hypertension: well controlled at this time. His BP has remained well controlled throughout the night and today. His most recent BP 121/78. We will continue with current treatment. 4. History of CVA with right sided weakness: will continue ASA, plavix, and Eliquis 5. Hyperlipidemia: last LDL 60, well controlled, will continue Atorvastatin 40 mg daily 6. Coronary artery disease: Patient had normal stress test in 09/2019. We will continue his Coreg, Isosorbide mononitrate, AYE inhibitor 7. History of paroxysmal atrial fibrillation: patient remains on Amiodarone 200 mg TID. We will continue this. Needs to f/u with EP outpatient if further bradycardia or arrhythmias continue to determine if PVI or ICD upgrade is necessary in the future.
--- NOTE | 2020-03-27 16:09 | PDOC.DS.DS ---
Provider - Provider Date of Admission: 03/26/20 15:08 Date of Discharge: 03/27/20 Admitting Provider: Cal Dacosta MD Consultations: Cardiology Primary Care Physician: Gerardo Bullock MD Course - Hospital Course Hospital Course: Patient is a 59-year-old male who initially presented to the hospital with concerns of possible stroke due to his elevated blood pressure. Patient has an AICD which has fired a few times last month. Patient normally follows cardiology as outpatient. At this time he was noted to have significant elevat ed blood pressure and bradycardic. She was evaluated by cardiology and electrophysiology. His ICD was interrogated. Recommendation was to continue the beta-marizol and increase the amiodarone. He will follow up with electrophysiology as outpatient. Patient had no more dizziness and his vitals h ave been stable. Patient had carotid Dopplers which indicated no significant stenosis. Patient had a CT neck which indicated posterior right paraspinal lipoma. Patient had an echocardiogram which indicated an EF of 35 to 40%. He continues to be on aspirin, statin, Plavix, Eliquis. His brain MRI was negative for stroke. EP recommended consider outpatient follow-up. - Labs Lab Results: 03/26/20 08:55 03/26/20 08:55 - Physical Exam Vitals: Vital Signs (12 hours) Temp Pulse Resp BP BP Pulse Ox 03/27/20 11:25 97.5 F L 53 L 20 148/92 H 98 03/27/20 11:12 97 03/27/20 09:11 133/86 03/27/20 07:27 97.7 F 54 L 16 133/86 97 Weight Weight 261 lb 3.2 oz Physical Exam: The patient was seen and examined on the day of discharge. Problem - Problem (1) Bradycardia Code(s): R00.1 - BRADYCARDIA, UNSPECIFIED Status: Acute (2) CAD (coronary artery disease) Code(s): I25.10 - ATHSCL HEART DISEASE OF [place] CORONARY ARTERY W/O ANG PCTRS Status: Chronic (3) CVA (cerebral vascular accident) Code(s): I63.9 - CEREBRAL INFARCTION, UNSPECIFIED Status: Chronic (4) DM2 (diabetes mellitus, type 2) Status: Chronic (5) HLD (hyperlipidemia) Code(s): E78.5 - HYPERLIPIDEMIA, UNSPECIFIED Status: Chronic (6) HTN (hypertension) Code(s): I10 - ESSENTIAL (PRIMARY) HYPERTENSION Status: Chronic (7) Obesity (BMI 30-39.9) Code(s): E66.9 - OBESITY, UNSPECIFIED Status: Chronic (8) Dizziness Code(s): R42 - DIZZINESS AND GIDDINESS Status: Acute Plan - Discharge Medications Prescriptions: Amiodarone [Cordarone] 200 mg PO TID #90 tab Carvedilol [Coreg] 12.5 mg PO BID-WM #60 tab Isosorbide Mononitrate [Imdur ER] 30 mg PO BID #60 tab Lisinopril [Zestril] 20 mg PO DAILY #30 tab Home Medications: Medication Instructions Recorded Confirmed Type Apixaban [Eliquis] 5 mg PO BID 02/13/20 03/24/20 History Aspirin [Ecotrin Low Strength] 81 mg PO DAILY 02/13/20 03/24/20 History Atorvastatin Calcium 40 mg PO HS 02/13/20 03/24/20 History Clopidogrel Bisulfate [Plavix] 75 mg PO HS 02/13/20 03/24/20 History Furosemide 40 mg PO BID 02/13/20 03/24/20 History Oxybutynin [Ditropan] 5 mg PO BID 02/13/20 03/24/20 History metFORMIN XR [Glucophage XR] 500 mg PO BID-WM 03/24/20 03/24/20 History Amiodarone [Cordarone] 200 mg PO TID #90 tab 03/27/20 Rx Carvedilol [Coreg] 12.5 mg PO BID-WM #60 tab 03/27/20 Rx Isosorbide Mononitrate [Imdur ER] 30 mg PO BID #60 tab 03/27/20 Rx Lisinopril [Zestril] 20 mg PO DAILY #30 tab 03/27/20 Rx Allergies: No Known Allergies Allergy (Verified 03/24/20 05:55) - Discharge Instructions Activity:: Activity as Tolerated Nourishment:: Heart Healthy Diet - Follow up Plan Referrals: Gerardo Bullock MD [Primary Care Provider] - Johny Elise MD [Electrical Assemblies Supervisor] - (Follow up in 6 weeks [phone] ) Disposition: HOME Quality - Care Measures CORE MEASURES:: N/A
--- NOTE | 2020-03-30 13:44 | EKG ---
Test Reason : Blood Pressure : / mmHG Vent. Rate : 060 BPM Atrial Rate : 060 BPM P-R Int : 164 ms QRS Dur : 100 ms QT Int : 578 ms P-R-T Axes : 038 -03 069 degrees QTc Int : 578 ms Sinus rhythm with Premature supraventricular complexes Inferior infarct , age undetermined Anterolateral infarct (cited on or before 23-MAR-2020) Prolonged QT Abnormal ECG When compared with ECG of 23-MAR-2020 16:55, (Unconfirmed) Premature supraventricular complexes are now Present Confirmed by MARTHA PENA (2) on 03/30/2020 1:44:42 PM Referred By: DAVID Confirmed By:MARTHA PENA
== END 2020-03-27 13:42 | disposition home or self-care (01) | DRG 309 ==
LOC: ERS 15:34 → 2SE 18:22 → OBSVTOIN 03-26 15:08
PROVIDERS: ADMIT Internal Medicine; ATTEND Internal Medicine
DX: R00.1 Bradycardia, unspecified (principal); I69.351 Hemiplegia and hemiparesis following cerebral infarction affecting right dominant side; I16.1 Hypertensive emergency; I25.10 Atherosclerotic heart disease of native coronary artery without angina pectoris; Z20.828 Contact with and (suspected) exposure to other viral communicable diseases; I10 Essential (primary) hypertension; E78.5 Hyperlipidemia, unspecified; N40.0 Benign prostatic hyperplasia without lower urinary tract symptoms; E66.9 Obesity, unspecified; I42.9 Cardiomyopathy, unspecified; R42 Dizziness and giddiness; I07.1 Rheumatic tricuspid insufficiency; D17.79 Benign lipomatous neoplasm of other sites; R94.31 Abnormal electrocardiogram [ECG] [EKG]; E11.9 Type 2 diabetes mellitus without complications; Z95.1 Presence of aortocoronary bypass graft; Z95.810 Presence of automatic (implantable) cardiac defibrillator; Z79.01 Long term (current) use of anticoagulants; Z79.82 Long term (current) use of aspirin; Z79.84 Long term (current) use of oral hypoglycemic drugs; Z68.37 Body mass index [BMI] 37.0-37.9, adult
CPT/HCPCS: 36415; 36416; 70450; 70490; 70551; 71045; 80053; 80061; 81001; 82565; 83735; 83880; 84443; 84484; 85014; 85018; 85025; 85049; 85610; 87635; 90471; 90732; 93005; 93010; 93306; 93880; 94760; 96365; G0009; G0378; J3475; U0003

== ENCOUNTER 2020-04-12 07:46 | Outpatient (CLI) | payer OTHER ==
[2020-04-12 15:39] LABS: Bilirubin Neg (Negative); Blood, Urine 10 (Negative); Clarity Clear (Clear); Glucose, Urine (Dipstick) 100 mg/dL (Negative); Ketone, Urine Negative (Negative); Leukocyte 100 (Negative); Nitrite Negative (Negative); Protein, Urine (Dipstick) 15 mg/dl (Neg-Trace); Urobilinogen Normal mg/dL (Less than 2)
[2020-04-12 15:44] LABS: Hemoglobin 14.2 g/dL (14.0-18.0); Mean Corpuscular HGB CONC 31.3 G/DL (32.0-36.0); Mean Corpuscular Hemoglobin 28.9 PG (27.0-33.0); Mean Corpuscular Volume 92.3 fl (80.0-100.0); Mean Platelet Volume 12.5 fl (7.4-10.4); Platelet Count 235 10x3/uL (130-400); RBC Distribution Width 14.1 % (11.5-14.5); Red Blood Cell (RBC) Count 4.92 10x6/uL (4.40-5.80); White Blood Cell (WBC) Count 11.9 10x3/uL (4.5-11.0)
[2020-04-12 15:56] LABS: Anion Gap 15 mmol/L (10-20); BUN (Urea Nitrogen) 17 mg/dL (8.4-25.7); Calc. Creatinine Clearance 0 mL/min (70-130); Calcium 9.3 mg/dL (7.8-10.44); Carbon Dioxide 23 mmol/L (23-31); Chloride 105 mmol/L (98-107); Glucose 171 mg/dL (80-115); Sodium 139 mmol/L (136-145)
[2020-04-12 15:58] LABS: Bacteria/HPF Rare-Few HPF (None Seen); RBC/HPF 0-3 HPF (0-3)
[2020-04-12 15:59] LABS: PTT 27.6 sec (22.0-33.0); Prothrombin Time 10.6 sec (9.5-12.1)
[2020-04-13 02:03] LABS: SARS-CoV-2 MS2 Positive; SARS-CoV-2 N Gene Negative; SARS-CoV-2 S Gene Negative; SARS-CoV-2 by NAA Not Detected (NotDetected); SARS-CoV-2 orf1ab Negative
== END 2020-04-12 07:47 | disposition home or self-care (01) ==
LOC: LABBT 07:46
PROVIDERS: ATTEND Urology
DX: Z01.818 Encounter for other preprocedural examination (principal); Z01.812 Encounter for preprocedural laboratory examination; N39.0 Urinary tract infection, site not specified; R30.0 Dysuria; N40.0 Benign prostatic hyperplasia without lower urinary tract symptoms; N21.0 Calculus in bladder; Z20.828 Contact with and (suspected) exposure to other viral communicable diseases
CPT/HCPCS: 80048; 81001; 85027; 85610; 85730; 87086; 87635; 93005; 93010; U0003

== ENCOUNTER 2020-04-17 08:51 | Day surgery (SDC) | payer OTHER ==
[2020-04-16 10:02] VITALS: BMI 36.6
[2020-04-17] MEDS ORDERED: Levofloxacin 500 mg/D5W 100 ml Premix Bag ONE (09:25)
== END 2020-04-17 09:40 | disposition home or self-care (01) ==
LOC: SDC 08:51
PROVIDERS: ATTEND Urology
DX: N40.1 Benign prostatic hyperplasia with lower urinary tract symptoms (principal); N20.1 Calculus of ureter; Z53.8 Procedure and treatment not carried out for other reasons; Z79.02 Long term (current) use of antithrombotics/antiplatelets; Z79.82 Long term (current) use of aspirin; Z79.84 Long term (current) use of oral hypoglycemic drugs; Z95.810 Presence of automatic (implantable) cardiac defibrillator
CPT/HCPCS: J1956

== ENCOUNTER 2020-04-19 09:09 | Emergency (ER) | payer OTHER ==
[2020-04-19 10:16] LABS: Bacteria/HPF None Seen HPF (None Seen); Bilirubin Negative (Negative); Blood, Urine 1+ (Negative); Clarity Clear (Clear); Glucose, Urine (Dipstick) 50 mg/dL (Negative); Ketone, Urine Negative (Negative); Leukocyte Negative Leu/uL (Negative); Mucous/LPF Rare LPF (<2+); Nitrite Negative (Negative); Protein, Urine (Dipstick) Negative (Neg-Trace); RBC/HPF 21-50 HPF (0-3); Specific Gravity, Urine 1.009 (1.002-1.036); Squamous Epithelial 0-3 HPF (0-3); Urobilinogen Normal mg/dL (Less than 2); WBC/HPF 0-3 HPF (0-3); pH, Urine 6.5 (5.0-9.0)
[2020-04-19 10:42] LABS: #Eosinphils 0.2 thou/uL (0.0-0.7); #Lymphocytes 1.5 thou/uL (1.20-3.40); #Monocytes 0.6 thou/uL (0.11-0.59); #Neutrophils 7.1 thou/uL (1.40-6.50); %Basophils 0.1 % (0.0-1.0); %Eosinophils 1.7 % (0.0-10.0); %Monocytes 6.7 % (0.0-10.0); %Neutrophils 75.5 % (42.0-75.0); Hemoglobin 14.4 g/dL (14.0-18.0); Mean Corpuscular HGB CONC 31.9 g/dL (32.0-36.0); Mean Corpuscular Hemoglobin 29.6 pg (27.0-31.0); Platelet Count 215 thou/uL (130-400); RBC Distribution Width 13.6 % (11.5-14.5); Red Blood Cell (RBC) Count 4.87 mill/uL (4.70-6.10); White Blood Cell (WBC) Count 9.4 thou/uL (4.8-10.8)
[2020-04-19 11:05] LABS: ALT (SGPT) 19 U/L (8-55); AST (SGOT) 13 U/L (5-34); Albumin 3.9 g/dL (3.4-4.8); Alkaline Phosphatase 105 U/L (40-110); Anion Gap 18 mmol/L (10-20); BUN (Urea Nitrogen) 12 mg/dL (8.4-25.7); Bilirubin, Total 1.1 mg/dL (0.2-1.2); Calc. Creatinine Clearance 0 mL/min (70-130); Calcium 9.2 mg/dL (7.8-10.44); Carbon Dioxide 21 mmol/L (23-31); Chloride 104 mmol/L (98-107); Globulin 2.8 g/dL (2.4-3.5); Glucose 190 mg/dL (80-115); Potassium 4.1 mmol/L (3.5-5.1); Protein, Total 6.7 g/dL (5.8-8.1); Sodium 139 mmol/L (136-145)
== END 2020-04-19 12:10 | disposition home or self-care (01) ==
LOC: ERS 09:09
DX: N40.1 Benign prostatic hyperplasia with lower urinary tract symptoms (principal); N13.8 Other obstructive and reflux uropathy; E78.5 Hyperlipidemia, unspecified; E11.9 Type 2 diabetes mellitus without complications; I10 Essential (primary) hypertension; Z79.01 Long term (current) use of anticoagulants; Z79.82 Long term (current) use of aspirin; Z79.899 Other long term (current) drug therapy
CPT/HCPCS: 36415; 51702; 80053; 81001; 84484; 85025; 93005

== ENCOUNTER 2020-04-22 16:03 | Emergency (ER) | payer OTHER | END 2020-04-22 21:12 | disposition home or self-care (01) | LOC: ERS 16:03 | DX: R33.9 Retention of urine, unspecified (principal); Z79.899 Other long term (current) drug therapy; Z79.01 Long term (current) use of anticoagulants; Z79.82 Long term (current) use of aspirin; E11.9 Type 2 diabetes mellitus without complications; E78.5 Hyperlipidemia, unspecified; I10 Essential (primary) hypertension | CPT/HCPCS: 51702 ==

== ENCOUNTER 2020-05-12 08:11 | Emergency (ER) | payer OTHER ==
[2020-05-12 09:53] LABS: ALT (SGPT) Less than 35 U/L (8-55); AST (SGOT) 12 U/L (5-34); Albumin 3.4 g/dL (3.4-4.8); Alkaline Phosphatase 83 U/L (40-110); Anion Gap 19 mmol/L (10-20); BUN (Urea Nitrogen) 15 mg/dL (8.4-25.7); Bilirubin, Total 1.7 mg/dL (0.2-1.2); Calc. Creatinine Clearance 0 mL/min (70-130); Calcium 8.8 mg/dL (7.8-10.44); Carbon Dioxide 17 mmol/L (23-31); Chloride 107 mmol/L (98-107); Globulin 3.3 g/dL (2.4-3.5); Glucose 139 mg/dL (80-115); Lipase 23 U/L (8-78); Potassium 3.7 mmol/L (3.5-5.1); Protein, Total 6.7 g/dL (5.8-8.1); Sodium 139 mmol/L (136-145)
[2020-05-12 10:23] LABS: #Eosinphils 0.1 thou/uL (0.0-0.7); #Lymphocytes 1.4 thou/uL (1.20-3.40); #Monocytes 1.1 thou/uL (0.11-0.59); #Neutrophils 12.4 thou/uL (1.40-6.50); %Basophils 0.1 % (0.0-1.0); %Eosinophils 0.7 % (0.0-10.0); %Lymphocytes 9.5 % (21.0-51.0); %Monocytes 7.1 % (0.0-10.0); %Neutrophils 82.6 % (42.0-75.0); Hemoglobin 13.2 g/dL (14.0-18.0); Mean Corpuscular HGB CONC 32.8 g/dL (32.0-36.0); Mean Corpuscular Hemoglobin 30.1 pg (27.0-31.0); Mean Corpuscular Volume 91.5 fL (78.0-98.0); Mean Platelet Volume 9.5 fL (7.4-10.4); Platelet Count 228 thou/uL (130-400); RBC Distribution Width 13.5 % (11.5-14.5); Red Blood Cell (RBC) Count 4.38 mill/uL (4.70-6.10)
[2020-05-12 10:46] LABS: Bacteria/HPF 4+ HPF (None Seen); Bilirubin Negative (Negative); Blood, Urine 3+ (Negative); Clarity Extra Turbid (Clear); Glucose, Urine (Dipstick) 30 mg/dL (Negative); Ketone, Urine Trace mg/dL (Negative); Leukocyte 500 Leu/uL (Negative); Nitrite 2+ (Negative); Protein, Urine (Dipstick) 100 mg/dL (Neg-Trace); RBC/HPF Greater than 50 HPF (0-3); Specific Gravity, Urine 1.025 (1.002-1.036); Squamous Epithelial None Seen HPF (0-3); Urobilinogen Normal mg/dL (Less than 2); WBC/HPF Greater than 50 HPF (0-3); pH, Urine 5.5 (5.0-9.0)
[2020-05-12] MEDS ORDERED: cefTRIAXone\\ROCEPHIN 2 GM VIAL ONE (12:21)
[2020-05-12] MEDS ORDERED: Lidocaine 1% PF 5 ML VIAL ONE (12:21)
[2020-05-12] MEDS ORDERED: Acetaminophen 500 MG TAB ONE (13:27)
== END 2020-05-12 13:30 | disposition home or self-care (01) ==
LOC: ERS 08:11
DX: T83.091A Other mechanical complication of indwelling urethral catheter, initial encounter (principal); N39.0 Urinary tract infection, site not specified; E78.5 Hyperlipidemia, unspecified; I10 Essential (primary) hypertension; Z79.899 Other long term (current) drug therapy
CPT/HCPCS: 36415; 51702; 80053; 81003; 81015; 83690; 85025; J0696

== ENCOUNTER 2021-04-05 08:42 | Outpatient (CLI) | payer OTHER ==
[2021-04-05 11:32] LABS: Anion Gap 13 mmol/L (10-20); BUN (Urea Nitrogen) 14 mg/dL (8.4-25.7); Calc. Creatinine Clearance 0 mL/min (70-130); Calcium 9.2 mg/dL (7.8-10.44); Carbon Dioxide 24 mmol/L (23-31); Chloride 108 mmol/L (98-107); Glucose 124 mg/dL (80-115); Potassium 4.1 mmol/L (3.5-5.1); Sodium 141 mmol/L (136-145)
[2021-04-05 11:34] LABS: Hemoglobin 11.6 g/dL (13.5-17.5); INR-International Normal Ratio 1.1; Mean Corpuscular HGB CONC 29.6 g/dL (32.0-36.0); Mean Corpuscular Hemoglobin 25.1 pg (27.0-33.0); Mean Corpuscular Volume 84.8 fl (81.2-95.1); Mean Platelet Volume 13.2 fl (7.4-10.4); PTT 28.6 sec (22.0-33.0); Platelet Count 198 10x3/uL (150-450); Prothrombin Time 11.6 sec (9.5-12.1); RBC Distribution Width 16.1 % (11.5-14.5); Red Blood Cell (RBC) Count 4.62 10x6/uL (4.32-5.72); White Blood Cell (WBC) Count 8.5 10x3/uL (3.5-10.5)
[2021-04-05 21:43] LABS: SARS-CoV-2 PCR by NAA Not Detected (NotDetected)
== END 2021-04-05 08:43 | disposition home or self-care (01) ==
LOC: LABBT 08:42
PROVIDERS: ATTEND Internal Medicine Cardiovascular Disease
DX: Z01.812 Encounter for preprocedural laboratory examination (principal); Z20.822 Contact with and (suspected) exposure to COVID-19
CPT/HCPCS: 80048; 85027; 85610; 85730; U0003; U0005

== ENCOUNTER 2021-04-10 07:53 | Observation (INO) | payer OTHER ==
[2021-04-10] MEDS ORDERED: Isoproterenol 0.2 MG/1 ML AMP ONE (08:55)
[2021-04-10] MEDS ORDERED: Heparin 25,000 units/D5W 500 ML ONE (09:41)
[2021-04-10] MEDS ORDERED: Protamine Sulfate 50 MG/5 ML VIAL ONE ×2 (09:41→14:21)
[2021-04-10] MEDS ORDERED: Heparin 10,000 UNITS/ 10 ML VIAL ONE (09:41)
[2021-04-10] MEDS ORDERED: Fentanyl 100 MCG/2 ML VIAL ONE (10:33)
[2021-04-10] MEDS ORDERED: PROPOFOL 200 MG/20 ML VIAL ONE (10:49)
[2021-04-10] MEDS ORDERED: Rocuronium Bromide 10 MG/ML (10ML VIAL) ONE (10:49)
[2021-04-10] MEDS ORDERED: Ondansetron PF 4 MG/2 ML Vial ONE (10:49)
[2021-04-10] MEDS ORDERED: ePHEDrine 50 MG/ML VIAL ONE (10:49)
[2021-04-10] MEDS ORDERED: Lidocaine 1% PF 5 ML VIAL ONE (10:49)
[2021-04-10] MEDS ORDERED: SUGAMMADEX SODIUM 200 MG/2 ML VIAL ONE (14:29)
[2021-04-10] MEDS ORDERED: Carvedilol 6.25 MG TAB PO SCH (18:30)
[2021-04-10 20:44] VITALS: BMI 37.5
[2021-04-10] MEDS: Sucralfate 1 GM TAB PO SCH ×2 (20:45→20:48)
[2021-04-10] MEDS: Apixaban 5 MG TAB PO SCH (20:47)
[2021-04-10] MEDS ORDERED: Atorvastatin Calcium 40 MG TAB PO SCH (21:00)
[2021-04-10] MEDS ORDERED: Acetaminophen/Codeine 30-300mg Tablet PO PRN ×2 (23:45)
[2021-04-10] MEDS ORDERED: HYDROcodone/Acetaminophen 5/325 mg Tablet PO PRN (23:45)
[2021-04-11] MEDS: HYDROcodone/Acetaminophen 5/325 mg Tablet PO PRN ×2 (03:07→07:35)
[2021-04-11] MEDS: Sucralfate 1 GM TAB PO SCH ×2 (07:58→11:29)
[2021-04-11] MEDS ORDERED: Carvedilol 6.25 MG TAB PO SCH (08:00)
[2021-04-11] MEDS ORDERED: metFORMIN XR 500 MG TAB PO SCH (08:00)
[2021-04-11] MEDS ORDERED: Furosemide 40 MG TAB PO SCH (09:00)
[2021-04-11] MEDS ORDERED: Furosemide 40 MG TAB PO PRN (09:00)
[2021-04-11] MEDS ORDERED: Clopidogrel Bisulfate 75 MG TAB PO SCH (09:00)
[2021-04-11] MEDS ORDERED: Potassium Chloride 20 MEQ TAB PO PRN (09:00)
[2021-04-11] MEDS ORDERED: FLU VACC QS2021-22(6MOS UP)/PF 60 MCG/0.5 ML SYRINGE IM ONE (09:00)
[2021-04-11] MEDS: Apixaban 5 MG TAB PO SCH (09:45)
[2021-04-11 11:17] VITALS: BP 133/71; TEMP 98.2
== END 2021-04-11 12:45 | disposition home or self-care (01) ==
LOC: CCL 07:53 → 2NO 17:06
PROVIDERS: ADMIT Internal Medicine Cardiovascular Disease; ATTEND Internal Medicine Cardiovascular Disease
PROC: 02583ZZ Destruction of Conduction Mechanism, Percutaneous Approach (ICD-10-PCS; principal; 2021-04-10)
PROC: 02K83ZZ Map Conduction Mechanism, Percutaneous Approach (ICD-10-PCS; 2021-04-10)
PROC: 4A023FZ Measurement of Cardiac Rhythm, Percutaneous Approach (ICD-10-PCS; 2021-04-10)
PROC: 4A0234Z Measurement of Cardiac Electrical Activity, Percutaneous Approach (ICD-10-PCS; 2021-04-10)
DX: I48.19 Other persistent atrial fibrillation (principal); I48.92 Unspecified atrial flutter; I25.5 Ischemic cardiomyopathy; R00.1 Bradycardia, unspecified; I69.393 Ataxia following cerebral infarction; I69.351 Hemiplegia and hemiparesis following cerebral infarction affecting right dominant side; I11.0 Hypertensive heart disease with heart failure; I50.22 Chronic systolic (congestive) heart failure; I07.1 Rheumatic tricuspid insufficiency; E11.9 Type 2 diabetes mellitus without complications; D64.9 Anemia, unspecified; N40.0 Benign prostatic hyperplasia without lower urinary tract symptoms; I25.10 Atherosclerotic heart disease of native coronary artery without angina pectoris; E78.5 Hyperlipidemia, unspecified; I47.2 Ventricular tachycardia; G43.709 Chronic migraine without aura, not intractable, without status migrainosus; Z79.01 Long term (current) use of anticoagulants; Z79.02 Long term (current) use of antithrombotics/antiplatelets; Z79.84 Long term (current) use of oral hypoglycemic drugs; Z79.899 Other long term (current) drug therapy; Z95.1 Presence of aortocoronary bypass graft; Z95.5 Presence of coronary angioplasty implant and graft; Z95.810 Presence of automatic (implantable) cardiac defibrillator
CPT/HCPCS: 36416; 85347; 93005; 93010; 93613; 93622; 93623; 93655; 93656; 93657; 93662; C1732; C1759; C1776; G0378; J1644; J2405; J2704; J2720; J3010; J3490

== ENCOUNTER 2022-10-29 21:27 | Observation (INO) | payer OTHER ==
[2022-10-30] MEDS ORDERED: Ondansetron ODT 4 MG TAB PO PRN (00:20)
[2022-10-30] MEDS ORDERED: Acetaminophen 325 MG TAB PO PRN (00:20)
[2022-10-30] MEDS ORDERED: Calcium Carbonate 500 MG ChewTAB PO PRN (00:20)
[2022-10-30] MEDS ORDERED: Senokot S 8.6-50 MG TAB PO PRN (00:20)
[2022-10-30] MEDS ORDERED: Potassium Chloride 20 MEQ TAB PO PRN (01:58)
[2022-10-30] MEDS ORDERED: Polyvinyl Alcohol 1.4%/Povidone 0.6% Opth Drops EA EYE PRN (01:59)
[2022-10-30] MEDS: MINERAL OIL/WHITE PETROLATUM 3.5 GM TUBE EA EYE PRN ×2 (03:57→08:08)
[2022-10-30 05:07] LABS: #Eosinphils 0.2 thou/uL (0.0-0.7); #Monocytes 0.8 thou/uL (0.11-0.59); %Basophils 0.6 % (0.0-1.0); %Eosinophils 2.5 % (0.0-10.0); %Lymphocytes 31.7 % (21.0-51.0); %Monocytes 10.3 % (0.0-10.0); %Neutrophils 54.5 % (42.0-75.0); Hemoglobin 13.6 g/dL (14.0-18.0); Mean Corpuscular HGB CONC 31.1 g/dL (32.0-36.0); Mean Corpuscular Hemoglobin 29.6 pg (27.0-31.0); Platelet Count 204 10x3/uL (130-400); RBC Distribution Width 13.8 % (11.5-14.5); White Blood Cell (WBC) Count 7.3 10x3/uL (4.8-10.8)
[2022-10-30 05:30] LABS: ALT (SGPT) 29 U/L (8-55); AST (SGOT) 22 U/L (5-34); Albumin 3.5 g/dL (3.4-4.8); Alkaline Phosphatase 86 U/L (40-110); Anion Gap 17 mmol/L (10-20); BUN (Urea Nitrogen) 22 mg/dL (8.4-25.7); Bilirubin, Total 1.1 mg/dL (0.2-1.2); Calc. Creatinine Clearance 95 mL/min (70-130); Calcium 8.7 mg/dL (7.8-10.44); Carbon Dioxide 19 mmol/L (23-31); Chloride 107 mmol/L (98-107); Estimated GFR 61; Globulin 2.4 g/dL (2.4-3.5); Glucose 167 mg/dL (80-115); Potassium 3.9 mmol/L (3.5-5.1); Protein, Total 5.9 g/dL (5.8-8.1); Sodium 139 mmol/L (136-145); Troponin I Less than 0.010 ng/mL (< 0.028)
[2022-10-30] MEDS ORDERED: metFORMIN XR 500 MG TAB PO SCH (08:00)
[2022-10-30] MEDS ORDERED: Carvedilol 6.25 MG TAB PO SCH (08:00)
[2022-10-30] MEDS: Famotidine 20 MG TAB PO SCH ×2 (08:10→08:14)
[2022-10-30 08:40] LABS: Troponin I 0.011 ng/mL (< 0.028)
[2022-10-30] MEDS ORDERED: Clopidogrel Bisulfate 75 MG TAB PO SCH (09:00)
[2022-10-30] MEDS ORDERED: Furosemide 40 MG TAB PO SCH (09:00)
[2022-10-30] MEDS ORDERED: Apixaban 5 MG TAB PO SCH (09:00)
[2022-10-30] MEDS ORDERED: Sacubitril 24MG/Valsartan 26 MG TAB PO SCH (09:00)
[2022-10-30 13:16] VITALS: TEMP 97.6
[2022-10-30 14:25] VITALS: BP 123/71
[2022-10-30] MEDS ORDERED: Atorvastatin Calcium 40 MG TAB PO SCH (21:00)
== END 2022-10-30 14:23 | disposition left against medical advice (07) ==
LOC: 2SW 23:51
PROVIDERS: ADMIT Student in an Organized Health Care Education/Training Program; ATTEND Internal Medicine
DX: R55 Syncope and collapse (principal); Z79.01 Long term (current) use of anticoagulants; N17.9 Acute kidney failure, unspecified; I48.91 Unspecified atrial fibrillation; I50.20 Unspecified systolic (congestive) heart failure; E11.9 Type 2 diabetes mellitus without complications; I25.10 Atherosclerotic heart disease of native coronary artery without angina pectoris; Z79.02 Long term (current) use of antithrombotics/antiplatelets; Z79.899 Other long term (current) drug therapy; Z79.84 Long term (current) use of oral hypoglycemic drugs; Z95.810 Presence of automatic (implantable) cardiac defibrillator
CPT/HCPCS: 36415; 36416; 80053; 84484; 85025; 93306; G0378; Q0162